=== PATIENT | female | born 1935 | race Caucasian/White ===

== ENCOUNTER 2017-07-19 16:50 | Inpatient (IN) | payer MEDICARE, OTHER ==
[2017-07-19 17:39] LABS: #Basophils 0.1 thou/uL (0.0-0.2); #Eosinphils 0.1 thou/uL (0.0-0.7); #Lymphocytes 1.7 thou/uL (1.20-3.40); #Monocytes 0.5 thou/uL (0.11-0.59); #Neutrophils 7.4 thou/uL (1.40-6.50); %Basophils 0.6 % (0.0-1.0); %Eosinophils 1.5 % (0.0-10.0); %Lymphocytes 17.8 % (21.0-51.0); %Monocytes 4.6 % (0.0-10.0); %Neutrophils 75.5 % (42.0-75.0); Mean Corpuscular HGB CONC 33.2 g/dL (32.0-36.0); Mean Corpuscular Hemoglobin 29.7 pg (27.0-31.0); Mean Corpuscular Volume 89.4 fl (81.0-99.0); Mean Platelet Volume 9.4 fL (7.4-10.4); Platelet Count 170 thou/uL (130-400); RBC Distribution Width 12.4 % (11.5-14.5); Red Blood Cell (RBC) Count 4.72 mill/uL (4.20-5.40); White Blood Cell (WBC) Count 9.8 thou/uL (4.8-10.8)
[2017-07-19 17:45] LABS: Prothrombin Time 12.9 SEC (12.0-14.7)
[2017-07-19 17:46] LABS: PTT 44.8 SEC (22.9-36.1)
[2017-07-19] MEDS ORDERED: Fentanyl 100 MCG/2 ML VIAL ONE (17:53)
[2017-07-19 18:00] LABS: ALT (SGPT) 8 U/L (8-55); AST (SGOT) 15 U/L (5-34); Albumin 3.8 g/dL (3.4-4.8); Alkaline Phosphatase 107 U/L (40-150); Anion Gap 14 mmol/L (10-20); BUN (Urea Nitrogen) 12 mg/dL (9.8-20.1); Bilirubin, Total 0.3 mg/dL (0.2-1.2); CK (CPK) 56 U/L (29-168); Calc. Creatinine Clearance 0 mL/min (70-130); Calcium 9.4 mg/dL (7.8-10.44); Carbon Dioxide 30 mmol/L (23-31); Chloride 100 mmol/L (98-107); Estimated GFR-MDRD 68; Globulin 2.7 g/dL (2.4-3.5); Glucose 113 mg/dL (83-110); Lipase 18 U/L (8-78); Potassium 4.2 mmol/L (3.5-5.1); Protein, Total 6.5 g/dL (6.0-8.3); Sodium 140 mmol/L (136-145)
--- NOTE | 2017-07-19 18:03 | RAD ---
EXAM: CHEST ONE VIEWS 07/19/17 COMPARISON: 02/01/17. HISTORY: Dizziness. FINDINGS: Enlarged cardiac silhouette. Pulmonary vessels and hilum are normal. Costophrenic angles are clear. N o consolidation or mass. No pneumothorax or osseous abnormalities. IMPRESSION: Cardiomegaly. No congestive heart failure. POS: [facility]
[2017-07-19 18:04] LABS: CKMB 2.7 ng/mL (0-6.6); Troponin I 0.022 ng/mL (< 0.028)
--- NOTE | 2017-07-19 21:15 | CT ---
EXAM: NONCONTRAST HEAD CT 07/19/17 HISTORY: Patient cannot walk. Altered mental status. Dizziness. COMPARISON: None. TECHNIQUE: Noncontrast head CT is performed from skull base to skull vertex. FINDINGS: No parenchymal hemorrhage. No extra-axial hematoma. No midline shift. Basilar cisterns are patent. Age appropriate atrophy. Malacic change in the medial right frontal lobe. Remainder of the cerebrum d emonstrates preservation of cortical novak-white matter differentiation. White matter hypodensities due to chronic small vessel ischemic change are noted. Calvarium is intact. Adequate aeration of the sinuses and mastoid air cells. IMPRESSION: 1. Chronic small vessel ischemic change of the white matter. 2. Malacic change in the medial right frontal lobe. 3. No acute intracranial process. POS: [facility]
[2017-07-19 23:56] VITALS: BMI 27.1
[2017-07-20] MEDS ORDERED: HYDROcodone/Acetaminophen 5/325 mg Tablet PO PRN (08:05)
[2017-07-20] MEDS ORDERED: Ondansetron ODT 4 MG TAB PO PRN (08:05)
[2017-07-20] MEDS ORDERED: Acetaminophen 325 MG TAB PO PRN (08:05)
--- NOTE | 2017-07-20 08:30 | HP ---
HISTORY OF PRESENT ILLNESS: This is an 82-year-old white female with a history of coronary artery d isease, peripheral vascular disease and severe aortic valve regurgitation who presents with dizziness . The patient has a long history of tobacco abuse, as well as coronary disease, status post stent an d peripheral vascular disease, status post stent to the right lower extremity. She continues to smok e half to 1 pack of cigarettes per day. She has been followed by Dr. Clay. She has been doing relatively well until yesterday at approximately 3:00 p.m., she became very dizzy and lightheaded. S he had to sit down. She had trouble with mobility so she sat down and then EMS was called and she wa s brought to the hospital. She was noted to have a relatively low blood pressure. Normally her bloo d pressure runs high. She did not complain of any chest pain, shortness of breath, nausea, vomiting, cold, congestion, fever. She does have a history of concentric left ventricular hypertrophy as well as severe aortic valve regurgitation, possibly eventually needing surgery. Initial CT scan of the ead was found to be negative for any acute disease. The patient is being admitted for further evalua tion. PAST MEDICAL HISTORY: Hypertension, concentric left ventricular hypertrophy, hyperlipidemia, tobacco abuse, hypothyroidism, moderate to severe aortic valve regurgitation with ejection fraction of 55-60 on 01/2017. PAST SURGICAL HISTORY: Include cardiac catheterization with stent placement x1 [address] Clay , bilateral cataract surgery, x1, spontaneous vaginal delivery x3, cardiac catheterization with stent to the right leg in 2015. FAMILY HISTORY: Father with liver cancer. Mother with heart disease. SOCIAL HISTORY: She does smoke half to 1 pack per day. She lives with her . 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 She has 2 sons, 2 daughters, 9 grandkids and many great grandkids. She does not drink alcohol. REVIEW OF SYSTEMS: As above. PHYSICAL EXAMINATION: VITAL SIGNS: Temperature 98.0, pulse 71, respirations 18, blood pressure 150/68, pulse ox 92. GENERAL: No acute distress at this time. She has not gotten out of bed yet to know if she is dizzy. Otherwise, at this time she is not dizzy. HEENT: Clear. NECK: Supple. HEART: Regular rate and rhythm with a 3/6 systolic ejection murmur. LUNGS: Clear. ABDOMEN: Soft, nontender. EXTREMITIES: No edema. NEUROLOGIC: Sensorimotor, cranial nerves all intact. DTRs symmetric. Motor equal bilaterally. LABORATORY: White count 9.8, H&H 14 and 42. INR 1.0. Glucose 113, potassium 4.2, creatinine 0.8, t roponin 1.022. BNP 339. CT brain, chronic small vessel changes of the white matter. No acute intracranial process. Chest x-ray: Cardiomegaly, no evidence of CHF. ASSESSMENT: 1. Near syncope. 2. Dizziness. 3. Moderate to severe aortic regurgitation. 4. Concentric left ventricular hypertrophy/coronary artery disease status post stent. 5. Tobacco abuse. 6. Hypertension. 7. Hypothyroid. 8. Peripheral vascular disease status post stent to the right lower extremity. PLAN: 1. The patient has had dizziness and lightheadedness, etiology unknown. Possibly may have had a TIA . However, the patient has a strong cardiac history and may be related to her aortic valve regurgita tion. She also may simply be dehydrated because she had minimal intake yesterday. She had no appeti te throughout the day yesterday. Will need further evaluation. 2. MRI of the brain. 3. Repeat echo. 4. Check TSH. 5. Consult Dr. Clay.
[2017-07-20] MEDS ORDERED: Carvedilol 6.25 MG TAB PO SCH (09:00)
[2017-07-20] MEDS ORDERED: Lisinopril 20 MG TAB PO SCH (09:00)
[2017-07-20] MEDS: Lisinopril 20 MG TAB PO SCH (09:17)
[2017-07-20] MEDS: Aspirin 325 mg Enteric Coated Tablet PO SCH (09:18)
[2017-07-20] MEDS: Famotidine 20 MG TAB PO SCH ×2 (09:18→20:18)
[2017-07-20] MEDS: Nicotine 14 MG PATCH TD SCH (09:18)
[2017-07-20] MEDS: Clopidogrel Bisulfate 75 MG TAB PO SCH (09:18)
[2017-07-20 09:30] LABS: CKMB 2.1 ng/mL (0-6.6); Troponin I 0.014 ng/mL (< 0.028)
[2017-07-20 09:36] LABS: Bilirubin Negative (Negative); Blood, Urine Negative (Negative); Clarity CLEAR (Clear); Glucose, Urine (Dipstick) Negative (Negative); Leukocyte Trace (Negative); Nitrite Negative (Negative); Protein, Urine (Dipstick) Negative (Neg-Trace); Specific Gravity, Urine 1.013 (1.002-1.036); Urobilinogen 0.2 mg/dL (0.2-1.0); pH, Urine 6.5 (5.0-9.0)
[2017-07-20 09:39] LABS: Bacteria/HPF None Seen HPF (None Seen); Hyaline Casts/LPF 0-3 HYALINE CAST LPF (0-3 Hyaline); Pathc Cast-AUWi Flag 0.27 (0-2.49); RBC/HPF 0-3 HPF (0-3); Squamous Epithelial 0-3 HPF (0-3); WBC/HPF 0-3 HPF (0-3)
--- NOTE | 2017-07-20 12:59 | MRI ---
MRI BRAIN WITHOUT CONTRAST: HISTORY: Dizziness. Difficulty walking. Altered mental status. CORRELATION: Correlation is made with the previous day's CT scan. FINDINGS: No restricted diffusion is seen. Multiple foci of T2 prolongation of the periventricular white matte r, consistent with chronic small vessel ischemic disease. There is cortical atrophy. The ventricular size is appropriate, and the basilar cisterns are patent. No evidence of transcortical infarct, hem orrhage, midline shift, or abnormal extraaxial fluid collections is seen. The visualized paranasal s inuses are well aerated. IMPRESSION: 1. No evidence of acute intracranial process. 2. Chronic small vessel ischemic disease. 3. Cortical atrophy. POS: [facility]
--- NOTE | 2017-07-20 17:27 | CON ---
DATE OF CONSULTATION: 07/20/2017 HISTORY: Laurence Huang is a pleasant 82-year-old white female patient of Dr. Clay. In 08/2008, she had exertional dyspnea. She underwent Cardiolite testing, which revealed an area of ischemia in the distal lateral wall. She underwent cardiac catheterization, which revealed 40-50% stenosis in a diagonal branch, normal circumflex, and 80% mid right coronary artery lesion and 10-20% stenosis in the mid and distal vessel. She underwent placement of a Promus 3.5 x 15 mm stent, which was post dilated with a 3.75 mm balloon. She also has had bilateral common iliac artery stenting also in 09/2008. She has continued to be followed in the office and does have aortic stenosis, aortic insufficiency. On last echocardiogram in 01/2017, she had ejection fraction of 55-60% with [id number] aortic regurgitation, mild concentric left ventricular hypertrophy, moderate aortic stenosis with a peak gradient of 49 mm, mean gradient of 30 mm, an aortic valve area 0.78 cm2, mild mitral regurgitation, mild tricuspid regurgitation, and evidence of diastolic dysfunction. She now presents complaining of lightheadedness and dizziness, which lasted total of 6 hours. With this, she had a feeling that the room was spinning. She almost lost her balance and fell, but was able to grab a hold of something. She did not have any syncope. She denied any chest discomfort or shortness of breath. She did have nausea with this. Even when she got to the emergency room, when she was supine in bed, she continued to have the same vertiginous- type symptoms. PAST MEDICAL HISTORY: Hypertension, aortic stenosis, aortic insufficiency, concentric left ventricular hypertrophy, hyperlipidemia, smoker, hypothyroidism. OPERATIONS: Right coronary artery stent placement, bilateral common iliac artery stenting, and section. MEDICATIONS: Aspirin 81 daily, carvedilol 12.5 daily, hydrochlorothiazide 25 mg daily, simvastatin unknown dose daily, lisinopril 20 mg b.i.d., isosorbide mononitrate 30 mg q.a.m. ALLERGIES: None. SOCIAL HISTORY: She continues to smoke one-pack per day. She does not drink alcohol. FAMILY HISTORY: Mother had cardiac disease. REVIEW OF SYSTEMS: Twelve-point review of systems otherwise unremarkable. PHYSICAL EXAMINATION: VITAL SIGNS: 137/62, pulse is 67. HEENT: PERRL. NECK: Supple. CHEST: Reveals distant breath sounds with some crackles at the bases. CARDIOVASCULAR EXAMINATION: S1 and S2 are normal, without any S3 or S4. There is a 2/6 systolic ejection murmur along the left sternal border. No diastolic murmurs heard. ABDOMEN: Normal bowel sounds, without tenderness, organomegaly, or masses. EXTREMITIES: Revealed no clubbing, cyanosis, or edema. NEUROLOGIC: Grossly intact. SKIN: Warm and dry. LABORATORY DATA: EKG revealed normal sinus rhythm with left atrial enlargement , left ventricular hypertrophy with repolarization abnormalities, similar to an EKG from the office dated 01/25/2017. CBC is unremarkable. INR 1.0. Sodium 140, potassium 4.2, chloride 100, carbon dioxide 30, BUN 12, creatinine 0.80, glucose 113. Cardiac enzymes were unremarkable. BNP 339.3. TSH mildly elevated at 6.308. IMPRESSION: 1. History most compatible with vertigo with feeling of spinning associated with nausea. She also had the same type symptoms when she was supine in bed in the emergency room. Certainly some of these symptoms may be related to hypotension or bradycardia. However, I feel that this represents vertigo. 2. Coronary artery disease, status post right coronary artery stent in 2008. 3. History of bilateral common iliac stenting in 2008. 4. Hypertension. 5. Hyperlipidemia. 6. Patient continues to smoke. 7. Aortic stenosis/aortic insufficiency. PLAN: At the present time, I do not feel that any further cardiac evaluation is warranted except for echocardiogram to reassess her aortic valve. I doubt that this episode is related to her aortic stenosis. She is taking a very high dose of carvedilol once a day and it would be more physiologic that this dose would be split into 6.25 b.i.d. MTDD
[2017-07-20] MEDS ORDERED: Simvastatin 40 MG TAB PO SCH (21:00)
[2017-07-21 05:02] LABS: #Basophils 0.1 thou/uL (0.0-0.2); #Eosinphils 0.2 thou/uL (0.0-0.7); #Lymphocytes 2.5 thou/uL (1.20-3.40); #Monocytes 0.4 thou/uL (0.11-0.59); #Neutrophils 3.5 thou/uL (1.40-6.50); %Basophils 0.9 % (0.0-1.0); %Eosinophils 2.8 % (0.0-10.0); %Monocytes 6.1 % (0.0-10.0); %Neutrophils 52.2 % (42.0-75.0); Hemoglobin 13.1 g/dL (12.0-16.0); Mean Corpuscular HGB CONC 33.3 g/dL (32.0-36.0); Mean Corpuscular Hemoglobin 29.5 pg (27.0-31.0); Mean Corpuscular Volume 88.8 fl (81.0-99.0); Mean Platelet Volume 9.5 fL (7.4-10.4); Platelet Count 140 thou/uL (130-400); RBC Distribution Width 12.4 % (11.5-14.5); Red Blood Cell (RBC) Count 4.43 mill/uL (4.20-5.40); White Blood Cell (WBC) Count 6.6 thou/uL (4.8-10.8)
[2017-07-21 05:23] LABS: Anion Gap 13 mmol/L (10-20); BUN (Urea Nitrogen) 12 mg/dL (9.8-20.1); Calc. Creatinine Clearance 60 mL/min (70-130); Calcium 8.9 mg/dL (7.8-10.44); Carbon Dioxide 27 mmol/L (23-31); Chloride 105 mmol/L (98-107); Estimated GFR-MDRD 74; Glucose 95 mg/dL (83-110); Potassium 4.1 mmol/L (3.5-5.1); Sodium 141 mmol/L (136-145)
[2017-07-21] MEDS ORDERED: Levothyroxine Sodium 88 MCG TAB PO SCH (06:00)
[2017-07-21 07:52] VITALS: BP 176/77; TEMP 98
[2017-07-21] MEDS: Lisinopril 20 MG TAB PO SCH (07:53)
[2017-07-21] MEDS: Clopidogrel Bisulfate 75 MG TAB PO SCH (07:53)
[2017-07-21] MEDS: Aspirin 325 mg Enteric Coated Tablet PO SCH (07:53)
[2017-07-21] MEDS: Famotidine 20 MG TAB PO SCH (07:53)
[2017-07-21] MEDS: Nicotine 14 MG PATCH TD SCH (07:54)
[2017-07-21] MEDS ORDERED: Carvedilol 6.25 MG TAB PO SCH (08:00)
--- NOTE | 2017-07-21 08:30 | DIS ---
DISCHARGE DIAGNOSES: 1. Vertigo. 2. Severe aortic regurgitation. 3. Concentric left ventricular hypertrophy. 4. Coronary artery disease, status post stent. 5. Peripheral vascular disease, status post stenting of the common iliac arteries. 6. Tobacco abuse. 7. Hypertension. 8. Hypothyroid. DISCHARGE MEDICATIONS: Aspirin 325 daily, carvedilol 6.25 p.o. b.i.d., Plavix 75 mg daily, isosorbid e 30 mg daily, levothyroxine 88 mcg daily, lisinopril 20 daily, simvastatin 40 daily. Echocardiogram pending. BRIEF HISTORY: This is an 82-year-old white female with coronary artery disease and a smoker who pre sented with dizziness. The patient has a long history of tobacco abuse and coronary artery disease w ho is status post stenting and the common iliac artery stenting. She continues to smoke half to 1 pa ck per day. She is followed by Dr. Clay. She became quite dizzy and was having difficulty ambu lating. Therefore, the family brought her to [facility]. She was noted to have a low blood pressure and was admitted for possible TIA versus CVA. HOSPITAL COURSE: MRI was found to be unremarkable. The patient's dizziness resolved spontaneously. Her exam and findings were consistent with vertigo. She is doing very well at this time. MRI was f ound to be unremarkable. The patient will be discharged at this time. An echo has been done, report is pending. She will be discharged and follow up with Dr. Clay. For many years I have tried t o convince her to quit smoking; however, she continues to smoke half to 1 pack per day. LABS: Electrolytes normal. Creatinine 0.75, BUN 12, TSH 6.30. Her Synthroid will be adjusted. Her BNP was 339. Urine clear. White count 6.6, H&H 13 and 39. Brain MRI and brain CT unremarkable. C hest x-ray showed cardiomegaly without CHF.
== END 2017-07-21 11:40 | disposition home or self-care (01) | DRG 149 ==
LOC: ERS 16:50 → ERHOLD 20:18 → 2SE 23:40
PROVIDERS: ADMIT Family Medicine; ATTEND Family Medicine
PROC: B030ZZZ Magnetic Resonance Imaging (MRI) of Brain (ICD-10-PCS; principal; 2017-07-20)
DX: R42 Dizziness and giddiness (principal); I73.9 Peripheral vascular disease, unspecified; I35.1 Nonrheumatic aortic (valve) insufficiency; E03.9 Hypothyroidism, unspecified; I10 Essential (primary) hypertension; I25.10 Atherosclerotic heart disease of native coronary artery without angina pectoris; E78.00 Pure hypercholesterolemia, unspecified; I51.7 Cardiomegaly; F17.210 Nicotine dependence, cigarettes, uncomplicated; Z95.5 Presence of coronary angioplasty implant and graft; Z82.49 Family history of ischemic heart disease and other diseases of the circulatory system; Z80.0 Family history of malignant neoplasm of digestive organs
CPT/HCPCS: 36415; 70450; 70551; 71045; 80048; 80053; 81003; 81015; 82550; 82553; 83690; 83880; 84443; 84484; 85025; 85610; 85730; 93005; 93306; G8978-GP-CJ; G8979-GP-CJ; G8980-GP-CJ; J3010

== ENCOUNTER 2017-09-19 19:54 | Inpatient (IN) | payer MEDICARE, OTHER ==
[2017-09-19 20:34] LABS: #Basophils 0.1 thou/uL (0.0-0.2); #Eosinphils 0.3 thou/uL (0.0-0.7); #Lymphocytes 2.5 thou/uL (1.20-3.40); #Monocytes 0.3 thou/uL (0.11-0.59); #Neutrophils 4.4 thou/uL (1.40-6.50); %Basophils 0.9 % (0.0-1.0); %Eosinophils 4.2 % (0.0-10.0); %Lymphocytes 32.7 % (21.0-51.0); %Monocytes 4.5 % (0.0-10.0); %Neutrophils 57.7 % (42.0-75.0); Mean Corpuscular HGB CONC 33.2 g/dL (32.0-36.0); Mean Corpuscular Hemoglobin 28.8 pg (27.0-31.0); Mean Corpuscular Volume 86.7 fl (81.0-99.0); Mean Platelet Volume 9.3 fL (7.4-10.4); Platelet Count 159 thou/uL (130-400); RBC Distribution Width 13.6 % (11.5-14.5); Red Blood Cell (RBC) Count 4.53 mill/uL (4.20-5.40); White Blood Cell (WBC) Count 7.6 thou/uL (4.8-10.8)
--- NOTE | 2017-09-19 20:41 | RAD ---
CHEST ONE VIEW: History: Chest pain. Comparison: 07-19-17 FINDINGS: Heart size is mildly enlarged. Chronic pleural and parenchymal changes in both lung bases. No pneumothorax. No acute osseous abnormality. IMPRESSION: No significant change. Mild cardiomegaly and chronic changes. POS: [facility]
[2017-09-19 20:53] LABS: ALT (SGPT) Less than 7 U/L (8-55); AST (SGOT) 17 U/L (5-34); Albumin 3.7 g/dL (3.4-4.8); Alkaline Phosphatase 102 U/L (40-150); Anion Gap 13 mmol/L (10-20); BUN (Urea Nitrogen) 10 mg/dL (9.8-20.1); Bilirubin, Total 0.3 mg/dL (0.2-1.2); CK (CPK) 63 U/L (29-168); Calc. Creatinine Clearance 0 mL/min (70-130); Calcium 8.9 mg/dL (7.8-10.44); Carbon Dioxide 29 mmol/L (23-31); Chloride 102 mmol/L (98-107); Estimated GFR-MDRD 56; Globulin 2.5 g/dL (2.4-3.5); Glucose 153 mg/dL (83-110); Potassium 4.2 mmol/L (3.5-5.1); Protein, Total 6.2 g/dL (6.0-8.3); Sodium 140 mmol/L (136-145)
[2017-09-19 20:55] LABS: CKMB 2.5 ng/mL (0-6.6); Troponin I 0.033 ng/mL (< 0.028)
[2017-09-20] MEDS ORDERED: Ondansetron ODT 4 MG TAB SL PRN
[2017-09-20] MEDS ORDERED: Acetaminophen 325 MG TAB PO PRN
[2017-09-20] MEDS ORDERED: Ondansetron HCl/PF 4 MG/2 ML Vial IVP PRN
[2017-09-20 00:30] LABS: Troponin I 0.027 ng/mL (< 0.028)
[2017-09-20] MEDS: Nitroglycerin 2% Ointment 1 INCH/1 GM Packet TOP SCH ×2 (01:08→15:50)
[2017-09-20 02:41] VITALS: BMI 25.0
[2017-09-20 02:57] LABS: Troponin I 0.039 ng/mL (< 0.028)
[2017-09-20] MEDS ORDERED: Lidocaine 1% (PF) 30 ML VIAL ONE (07:42)
[2017-09-20] MEDS ORDERED: Midazolam HCl 2 mg/2 ml Vial ONE (07:50)
[2017-09-20] MEDS ORDERED: Fentanyl 100 MCG/2 ML VIAL ONE (07:50)
[2017-09-20] MEDS ORDERED: Aspirin 325 MG TAB PO SCH (08:00)
[2017-09-20] MEDS ORDERED: hydrALAZINE 20 MG/ML VIAL ONE (08:10)
[2017-09-20] MEDS ORDERED: Heparin 10,000 UNITS/1 ML VIAL ONE (08:11)
[2017-09-20] MEDS ORDERED: Clopidogrel Bisulfate 300 MG TAB ONE (08:22)
--- NOTE | 2017-09-20 08:27 | CON ---
DATE OF CONSULTATION: 09/20/2017 REASON FOR CONSULTATION: Chest pain, abnormal stress study. PRIMARY CARE PROVIDER: Dr. Anup Moses. HISTORY OF PRESENT ILLNESS: Ms. Huang is a very pleasant 82-year-old woman, who was seen and evaluat ed for several years. Her main complaint in the past has been severe PVD. She has complete obstruct ion of the right SFA and left common iliac and common femoral artery and SFA. She has had coronary a ngiography performed in 2008 with stent placed in the right coronary artery. She had a 3.5 x 15 mm P romus stent, postoperative 3.75 x 12 mm Quantum air balloon catheter. She also had 40%-50%% stenosis in the mid LAD. She recently underwent coronary angiography and was found to have ischemia present along the anterior wall with LVEF 42%. She said she had a spell yesterday, which prompted her ER vis it. It was similar to her previous episode. It awoke her from sleep. [facility] PAST MEDICAL HISTORY: Continued tobacco abuse, hyperlipidemia, hypertension, severe PVD, family hist ory of CAD, . ALLERGIES: None. HOME MEDICATIONS: Include Crestor, Coreg, lisinopril, aspirin, hydrochlorothiazide, Zocor, Plavix, a nd isosorbide. REVIEW OF SYSTEMS: Ten-point review of systems is reviewed as above, otherwise negative. PHYSICAL EXAMINATION: VITAL SIGNS: Blood pressure 177/74, pulse 60, temperature 97.5. GENERAL: Patient is a pleasant woman, who is in no acute distress. The patient appears her stated a ge. NEUROLOGIC: The patient is alert and oriented times 3 with no focal neurologic deficits. HEENT: Sclerae without icterus. Mouth has moist mucous membranes with normal pallor. NECK: No JVD. Carotid upstroke brisk. No bruits bilaterally. LUNGS: Clear to auscultation with unlabored respirations. BACK: No scoliosis or kyphosis. CARDIAC: Regular rate and rhythm with normal S1 and S2. No S3 or S4 noted. No significant rubs, mu rmurs, thrills, or gallops noted throughout the precordium. PMI is not displaced. There is no nadia ternal heave. ABDOMEN: Soft, nontender, nondistended. No peritoneal signs present. No hepatosplenomegaly. No abnormal striae. EXTREMITIES: Nonpalpable popliteal ulcers bilaterally. SKIN: No gross abnormalities. PERTINENT LABORATORY DATA: Hemoglobin 13. Troponin 0.027. IMPRESSION: 1. Recurrent chest pain. 2. Abnormal stress study. 3. Severe peripheral vascular disease. 4. Tobacco abuse. RECOMMENDATIONS: Ms. Huang has had moderate stenosis of the LAD in the past. She has ischemia in th at distribution. At this point, I recommend coronary angiography, possible PCI. I discussed the pro cedure in full detail with Ms. Huang. Risks included but are not limited to following: , strok e, VA, need for emergency surgery, loss of limb, bleeding, and infection, as well as a reaction to th e dye causing kidney failure and needing long-term dialysis. I also discussed the risks of PCI to in clude all of the above including coronary dissection and perforation in addition to acute stent throm bosis and restenosis. All questions about the procedure were answered. Given the above, the patient agreed to proceed with coronary angiography and possible PCI. All questions answered. I also discu ssed drug-coated and nondrug-coated stent placement. There are no contraindication and proceed if ne eded. Further recommendations pending the above.
[2017-09-20] MEDS ORDERED: Ondansetron HCl/PF 4 MG/2 ML Vial ONE ×2 (08:41→08:59)
[2017-09-20] MEDS ORDERED: traMADol HCl 50 MG TAB PO PRN (08:43)
[2017-09-20] MEDS ORDERED: cloNIDine 0.1 MG TAB PO PRN (08:43)
[2017-09-20] MEDS ORDERED: Milk Of Magnesia 30 ML UDCUP PO PRN (08:43)
[2017-09-20] MEDS ORDERED: Acetaminophen/Codeine 30-300mg Tablet PO PRN (08:43)
[2017-09-20] MEDS ORDERED: Zolpidem Tartrate 5 MG TAB PO PRN (08:43)
[2017-09-20] MEDS ORDERED: Sodium Chloride 0.9% 1,000 ML IV SCH (08:45)
[2017-09-20] MEDS ORDERED: Morphine 2 MG/ML SYRINGE ONE (09:17)
[2017-09-20] MEDS: Carvedilol 3.125 MG TAB PO SCH ×2 (15:50→19:45)
[2017-09-20] MEDS: Clopidogrel Bisulfate 75 MG TAB PO SCH (15:51)
[2017-09-20] MEDS: Lisinopril 2.5 MG TAB PO SCH (16:00)
[2017-09-20] MEDS ORDERED: Iopamidol 370 76% 50 ML VIAL FS ONE (16:23)
[2017-09-20] MEDS ORDERED: Iopamidol 370 76% 100 ML VIAL ONE (16:23)
[2017-09-20] MEDS ORDERED: Amlodipine 5 MG TAB PO SCH (18:00)
[2017-09-20] MEDS: Atorvastatin Calcium 40 MG TAB PO SCH (19:45)
[2017-09-21 04:49] LABS: #Eosinphils 0.2 thou/uL (0.0-0.7); #Lymphocytes 1.5 thou/uL (1.20-3.40); #Monocytes 0.4 thou/uL (0.11-0.59); #Neutrophils 5.4 thou/uL (1.40-6.50); %Basophils 0.3 % (0.0-1.0); %Eosinophils 2.5 % (0.0-10.0); %Lymphocytes 19.6 % (21.0-51.0); %Monocytes 5.4 % (0.0-10.0); %Neutrophils 72.2 % (42.0-75.0); Hemoglobin 12.5 g/dL (12.0-16.0); Mean Corpuscular HGB CONC 32.5 g/dL (32.0-36.0); Mean Corpuscular Hemoglobin 28.5 pg (27.0-31.0); Mean Corpuscular Volume 87.5 fl (81.0-99.0); Mean Platelet Volume 9.5 fL (7.4-10.4); Platelet Count 154 thou/uL (130-400); RBC Distribution Width 13.8 % (11.5-14.5); Red Blood Cell (RBC) Count 4.38 mill/uL (4.20-5.40); White Blood Cell (WBC) Count 7.5 thou/uL (4.8-10.8)
[2017-09-21 05:03] LABS: ALT (SGPT) Less than 7 U/L (8-55); AST (SGOT) 22 U/L (5-34); Albumin 3.4 g/dL (3.4-4.8); Alkaline Phosphatase 89 U/L (40-150); Anion Gap 9 mmol/L (10-20); BUN (Urea Nitrogen) 9 mg/dL (9.8-20.1); Bilirubin, Total 0.6 mg/dL (0.2-1.2); Calc. Creatinine Clearance 58 mL/min (70-130); Calcium 8.7 mg/dL (7.8-10.44); Carbon Dioxide 31 mmol/L (23-31); Chloride 105 mmol/L (98-107); Estimated GFR-MDRD 74; Globulin 2.3 g/dL (2.4-3.5); Glucose 92 mg/dL (83-110); Potassium 4.5 mmol/L (3.5-5.1); Protein, Total 5.7 g/dL (6.0-8.3); Sodium 140 mmol/L (136-145)
[2017-09-21] MEDS ORDERED: Carvedilol 3.125 MG TAB PO SCH (06:46)
--- NOTE | 2017-09-21 08:07 | PRG ---
DATE OF SERVICE: 09/21/2017 SUBJECTIVE: This morning, called by nurses. Patient was complaining of some lightheadedness and diz ziness. She remains dizzy at this time. She was also noted to have elevated blood pressure. She mccollum d yet to receive her morning medications. OBJECTIVE: VITAL SIGNS: Temperature 98.1, pulse 76, respirations 16, and blood pressure 188/90. GENERAL: Patient complains of dizziness. She is comfortable in the bed. HEENT: Clear. HEART: Regular rate and rhythm with 2/6 systolic ejection murmur. LUNGS: Clear. ABDOMEN: Soft. EXTREMITIES: With no edema. LABORATORY DATA: White count 7.5, hemoglobin and hematocrit of 12 and 38. Electrolytes normal. Cre atinine 0.75 and BUN 9. Liver function is normal. ASSESSMENT: 1. Dizziness, possibly related to elevated blood pressure. The patient is yet to receive morning me dications. 2. Postop day #1, status post cardiac catheterization with stent x1. 3. Coronary artery disease and peripheral vascular disease. 4. Long history of tobacco abuse. 5. Hypertension. 6. Hyperlipidemia. 7. Hypothyroidism. PLAN: 1. Monitor blood pressure today. 2. Resume home medications which include aspirin 325 mg daily, Coreg 12.5 p.o. b.i.d., Plavix 75 mg daily, isosorbide 30 mg daily, levothyroxine 88 mcg daily, lisinopril 40 daily, and simvastatin 40 da paula.
[2017-09-21] MEDS ORDERED: Carvedilol 6.25 MG TAB PO SCH ×2 (08:15→09:00)
[2017-09-21] MEDS ORDERED: Lisinopril 20 MG TAB PO SCH (08:15)
[2017-09-21] MEDS: Clopidogrel Bisulfate 75 MG TAB PO SCH (08:24)
[2017-09-21] MEDS: Lisinopril 2.5 MG TAB PO SCH (08:28)
[2017-09-21] MEDS: Lisinopril 20 MG TAB PO SCH (08:29)
--- NOTE | 2017-09-21 08:47 | HP ---
DATE OF ADMISSION: 09/20/2017 at 07:30 This is an 82-year-old white female with a history of coronary artery disease and a long history of t obacco abuse, peripheral vascular disease, and severe aortic valve regurgitation. She was recently h ospitalized for a similar episode of near syncope, dizziness, and chest pain. This was in July of this year. However, she did well and her symptoms resolved. 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 She developed chest pain, nonradiating with nause a and vomiting. She then presented to the emergency room for further evaluation. She was noted to h ave a slightly elevated troponin. She also had been seen by Dr. Clay and it was decided that e proceed with cardiac catheterization due to her long history of coronary artery disease, peripheral vascular disease, and tobacco history. PAST MEDICAL HISTORY: Hypertension, concentric left ventricular hypertrophy, hyperlipidemia, tobacco abuse, hypothyroidism, severe aortic valve regurgitation. PAST SURGICAL HISTORY: Include cardiac catheterization with stent x1, 2009; bilateral cataract surge ry; x1; spontaneous vaginal delivery x3; cardiac catheterization with stent to the right le g in 2014. FAMILY HISTORY: Father with liver cancer. Mother with heart disease. SOCIAL HISTORY: She smokes 1 pack per day. She lives with her . She has 2 sons two daughter s, 9 kids, and many grandkids. She does not drink alcohol. REVIEW OF SYSTEMS: As above. PHYSICAL EXAMINATION: VITAL SIGNS: Temperature 97.5, blood pressure 137/74, pulse 60. GENERAL: No acute distress. The patient was seen postop catheterization this morning. HEART: Regular rate and rhythm with 2/6 systolic ejection murmur. LUNGS: Clear. ABDOMEN: Soft, nontender. EXTREMITIES: With no edema. LABORATORY: Creatinine is 0.95, BUN 10, potassium 4.2. Troponin 0.033. White count 7.6, H and H of 13 and 39. ASSESSMENT: 1. Chest pain, rule out myocardial infarction. 2. Coronary artery disease, peripheral vascular disease, status post cardiac stent. 3. Hypertension. 4. Hyperlipidemia. 5. Severe aortic valve regurgitation. 6. Hypothyroidism. 7. Tobacco history. PLAN: 1. Dr. Caly completed a cardiac catheterization this morning. One stent was placed in the dist al right coronary artery. 2. We will observe today, possibly discharge this afternoon. 3. Resume home medications.
[2017-09-21] MEDS ORDERED: Ondansetron HCl/PF 4 MG/2 ML Vial SLOW IVP PRN (12:32)
[2017-09-21] MEDS ORDERED: DOBUTamine 500 mg/250 ml 500 MG in Premix Bag 1 BAG IVPB SCH (12:45)
--- NOTE | 2017-09-21 19:00 | PRG ---
DATE OF SERVICE: 09/21/2017 SUBJECTIVE: Ms. Huang today had hypertension this morning. She was placed on her home medications. She did develop ventricular standstill with an 8 second pause. She did develop dizziness. She has not had syncope or presyncope in the past. She was then placed on low dose Dobutrex at 5 mcg. She w as transferred to telemetry monitoring. OBJECTIVE: VITAL SIGNS: Blood pressure 144/65, pulse 70, temperature 98.6. LUNGS: Clear to auscultation. CARDIAC: Heart, regular rate and rhythm. ABDOMEN: Soft, nontender, nondistended. EXTREMITIES: No edema. IMPRESSION: Ventricular standstill. RECOMMENDATIONS: I do not feel Ms. Huang symptoms are related to increase in beta alessio. This johnny uld not cause ventricular standstill. She has likely had sick sinus syndrome. I have asked EP to co nsult and they agree. At this point, we would recommend transferring to [facility] for closer observation. She is currently stable and again has not had syncope or presyncope in the past. Pacemaker is plan enrico for tomorrow morning. We will place external pads overnight.
--- NOTE | 2017-09-21 19:45 | CON ---
DATE OF CONSULTATION: 09/21/2017 This is an electrophysiology consultation dictated for Dr. Dustin Serrano. REFERRING PHYSICIAN: David Clay MD REASON FOR CONSULTATION: Arrhythmia and ventricular standstill with pause. HISTORY OF PRESENT ILLNESS: Ms. Huang is a pleasant 82-year-old woman, who has been a patient of Dr. Clay for some years. She has a fairly extensive history of severe PVD, as well as coronary artery disease. She has had RCA stenting in 2008 along with 40%-50% stenosis found in the mid LAD. Most recent LVEF is documented at 42%. The patient reportedly had an episode of dizziness on 09/19/2017, which prompted her presentation to the emergency room. She has had similar episodes in the past, but it was in association with a chest pain that have awoken her from her sleep. She reports she has never had an episode with passing out or any known arrhythmias in the past. She denies any heart racing or palpitations. She has not had any stroke or stroke-like symptoms. She does have some lightheadedness and dizziness today. She has recently undergone heart catheterization and received 1 stent to the distal RCA on 2017. It appears there was some possible discrepancy with her beta alessio dose. By records, this admission, the patient was documented as having Coreg 12.5 mg p.o. b.i.d., but in reality she takes 6.25 mg p.o. b.i.d. at home. She was given 12.5 mg here and had her ventricular standstill with that dose on board. She has not had previous intolerance to beta blockers. PAST MEDICAL HISTORY: 1. Peripheral vascular disease with complete obstruction of the right SFA and left common iliac and common femoral artery as well as SFA. 2. Coronary artery disease with stenting in the RCA and recent PCI with stent placement, unknown location. 3. Hyperlipidemia. 4. Hypertension. PAST SURGICAL HISTORY: . FAMILY HISTORY: Positive for coronary artery disease. SOCIAL HISTORY: Positive for tobacco habituation. Negative for alcohol abuse and illicit drug use. ALLERGIES: None. HOME MEDICATIONS: Include Crestor, Coreg, lisinopril, aspirin, hydrochlorothiazide, Zocor, Plavix, and isosorbide. REVIEW OF SYSTEMS: A 10-point review of systems is conducted and is negative except that listed above in the HPI. PHYSICAL EXAMINATION: VITAL SIGNS: 98.6 degrees Fahrenheit, pulse is 70, respirations 16, 92% on 2 liters via nasal cannula, blood pressure 144/65. GENERAL: This is a very pleasant woman in no acute distress. She appears her stated age and she is alert and oriented. NEUROLOGIC: Her speech is clear and her affect is appropriate. Her neurologic exam is grossly intact and without deficit, nonfocal. HEENT: Her sclerae are anicteric and EOMs are intact. Her oral mucosa is moist and pink with adequate dentition. NECK: Supple without jugular venous distention and carotids are without bruit bilaterally. CHEST: Her lungs are clear to auscultation bilaterally. Respirations are even and unlabored, and without crackles, wheezes, or rhonchi. HEART: Her heart rate is regularly regular with a normal S1 and S2. PMI is nondisplaced. ABDOMEN: Benign with positive bowel sounds noted throughout. EXTREMITIES: Have noticeably decreased arterial flow, nonpalpable popliteal pulses with pulses dopplerable bilaterally to lower extremities. DATABASE: Hematology on 09/21/2017: WBC 7.5, hemoglobin 12.5, hematocrit 38.3 , platelet count of 154. Chemistry on 09/21/2017: Sodium 140, potassium 4.5, chloride 105, carbon dioxide 31, BUN of 9, creatinine 0.75. AST is 22, ALT is less than 7, alkaline phosphatase is 89. Serial troponins were conducted and has peaked at 0.039. Chest x-ray on 09/19/2017: Mild cardiomegaly and chronic pleural and parenchymal changes in both lung bases. No pneumothorax. No acute abnormality. Telemetry and EKG review: All tracings and EKGs were personally reviewed. The patient is currently in sinus bradycardia at a rate in the mid to high 50s. There are some ST depression along the inferior leads. On 2017 at 11:49, the patient had an 8.2 second ventricular standstill. There is no preceding progressive bradycardia and P-waves discernibly continued regularly. The patient has had 2 or 3 additional episodes around the same time with the longest episode being 8.2 seconds. IMPRESSION: 1. Paroxysmal complete AV block with associated nausea and altered level of conscious. 2. Coronary artery disease with prior myocardial infarction, currently hospitalized with a [id number] myocardial infarction and status post stent to the distal RCA x1. 3. Necessary beta alessio therapy in the setting of coronary artery disease. Possible beta alessio intolerance. PLAN: At this point, it is likely the patient would benefit from a permanent pacemaker implantation. It is possible that her block occurred in the setting of beta alessio intolerance, although the dose of Coreg she received is only slightly higher than her regular home dose. For that reason, the safest way to proceed with a permanent pacemaker implantation. Thank you for allowing us to participate in the care of this patient. Dictated by ROCÍO Fong
[2017-09-21] MEDS: Atorvastatin Calcium 40 MG TAB PO SCH (21:52)
[2017-09-22] MEDS ORDERED: Gentamicin 80 MG/2 ML VIAL ONE (06:42)
[2017-09-22] MEDS ORDERED: CEFAZOLIN 1 GM VIAL ONE (06:42)
[2017-09-22] MEDS ORDERED: CEFAZOLIN/Water 2 GM/20 ML SYRINGE ONE (06:43)
[2017-09-22] MEDS ORDERED: Midazolam HCl 2 mg/2 ml Vial ONE (07:27)
[2017-09-22] MEDS ORDERED: Carvedilol 6.25 MG TAB PO SCH ×3 (08:30→17:00)
[2017-09-22] MEDS: Lisinopril 20 MG TAB PO SCH (09:17)
[2017-09-22] MEDS: Clopidogrel Bisulfate 75 MG TAB PO SCH (09:18)
--- NOTE | 2017-09-22 10:24 | RAD ---
CHEST ONE VIEW: Comparison: 09-19-17 History: Status post cardiac device placement. FINDINGS: Portable upright chest demonstrates a left sided transvenous pacemaker with leads positioned in the r ight atrium and right ventricle. There are parenchymal changes in the right lung base. There is no pn eumothorax or osseous abnormalities. IMPRESSION: 1. Left side transvenous pacemaker as above. 2. No pneumothorax. 3. Parenchymal change in the right lung base. Continued surveillance. POS: [facility]
--- NOTE | 2017-09-22 10:29 | PRG ---
DATE OF SERVICE: 09/22/2017 SUBJECTIVE: I am seeing Ms. Huang in followup. She underwent a dual-chamber pacemaker implantation by Dr. Haley this morning. She seems to be doing well on the day of her procedure. No chest pains. No further dizziness is noted since the implant. OBJECTIVE: VITAL SIGNS: Blood pressure is 166/53, heart rate is 70, respirations 16, temperature 97.8 degrees Fahrenheit. GENERAL: This is an alert and oriented woman in no apparent distress. NECK: Supple. Jugular veins not distended. CHEST: Coarse without crackles. CARDIOVASCULAR: Heart sounds are regular to rate and rhythm. No murmur or gallop. ABDOMEN: Benign. Bowel sounds positive. EXTREMITIES: Without edema, clubbing or cyanosis. DATABASE: The chest x-ray reviewed reveals adequate CT dual chamber pacemaker without evidence of pneumothorax. LAB DATA: White blood cell count 7.5, hemoglobin 12.5, platelet count is 154, 000 on the 7th, electrolytes normal on the 7th as well. ASSESSMENT AND PLAN: Ms. Huang is an 82-year-old woman with history of recent stent placement and peripheral vascular disease. She has marked bradycardia on moderate doses of beta alessio associated with nausea. She also had a recent RCA territory stent. She was symptomatic with these events. We discussed there is a benefit from pacemaker implantation in her set up. Likely, she will need beta blockers long-term, hence history of myocardial infarctions. She underwent a pacemaker without events today. Continue monitoring, continue beta blockers as well. I am happy to see her back as an outpatient if felt necessary. RACH
--- NOTE | 2017-09-22 13:33 | RAD ---
PORTABLE CHEST: History: Dyspnea. ICU follow up. Post cardiac device placement. FINDINGS/IMPRESSION: Lungs appear clear. Heart is mildly enlarged with mild vascular engorgement which appears stable. Tin y effusions and mild bibasilar atelectasis cannot be excluded. These findings are slightly less prono unced than on the prior study from 8:57 a.m. this morning. Deal-lead pacemaker device is unchanged. N o acute interval change. POS: [facility]
--- NOTE | 2017-09-22 17:33 | EKG ---
Test Reason : POST STENT - RCA Blood Pressure : / mmHG Vent. Rate : 084 BPM Atrial Rate : 084 BPM P-R Int : 148 ms QRS Dur : 088 ms QT Int : 404 ms P-R-T Axes : 060 -01 180 degrees QTc Int : 477 ms Normal sinus rhythm Possible Left atrial enlargement Left ventricular hypertrophy with repolarization abnormality Abnormal ECG When compared with ECG of 19-SEP-2017 19:59, (Unconfirmed) ST now depressed in Anterior leads Confirmed by DR. Lionel MENDIETA ([id number]) on 09/22/2017 5:32:58 PM Referred By: DRAGAN Confirmed By:DR. Lionel MENDIETA
--- NOTE | 2017-09-22 17:39 | EKG ---
Test Reason : Blood Pressure : / mmHG Vent. Rate : 074 BPM Atrial Rate : 074 BPM P-R Int : 154 ms QRS Dur : 076 ms QT Int : 414 ms P-R-T Axes : 071 002 177 degrees QTc Int : 459 ms Normal sinus rhythm Left ventricular hypertrophy with repolarization abnormality Abnormal ECG When compared with ECG of 20-SEP-2017 09:32, (Unconfirmed) No significant change was found Confirmed by DR. Lionel MENDIETA ([id number]) on 09/22/2017 5:39:20 PM Referred By: DRAGAN Confirmed By:DR. Lionel MENDIETA
--- NOTE | 2017-09-22 18:20 | PRG ---
DATE OF SERVICE: 09/22/2017 SUBJECTIVE: Ms. Huang had a setback today. She had a syncopal episode while going to the bathroom. She quickly was arousable. She was placed in bed. The blood pressure at that time was 150 with a p ulse of 60. During my visit, she is somnolent. No current complaints. OBJECTIVE: VITAL SIGNS: Blood pressure 170/61, pulse 66 and temperature is 94. LUNGS: Clear to auscultation. HEART: Regular rate and rhythm. ABDOMEN: Soft, nontender and nondistended. EXTREMITIES: No edema. IMPRESSION: Recent syncope. RECOMMENDATIONS: I did not feel this is due to her cardiac condition. Her LVEF has been normal. Sh ciara was revascularized 2 days ago. She underwent pacemaker placement yesterday. May consider a neurol ogic cause. We would recommend echo with Doppler to assess for effusion, although not typical. We w ill also recommend orthostatics. Continue to observe closely.
--- NOTE | 2017-09-22 18:29 | PRG ---
DATE OF SERVICE: 09/22/2017 SUBJECTIVE: The patient is postop day #0, status post dual-chamber pacemaker implantation by Dr. Tayler wakefield this morning. The patient is doing well at this time. She sits up in a chair. She is feeling muc h better at this time. Her nausea and dizziness have resolved. OBJECTIVE VITAL SIGNS: Temperature 98.4, pulse 66, respirations 16, pulse ox 99, blood pressure 170/61. HEART: Regular rate and rhythm. LUNGS: Clear. ABDOMEN: Soft. EXTREMITIES: No edema. ASSESSMENT: 1. Postop day #0, status post dual chamber pacemaker implantation. 2. Postop day #2, status post cardiac catheterization with stent x1. 3. Coronary artery disease, peripheral vascular disease. 4. Long history of tobacco abuse. 5. Hypertension. 6. Hyperlipidemia. 7. Hypothyroidism. PLAN: 1. Continue to monitor patient tonight. If she does well, probably will be discharged in the [facility]. 2. Continue home medications, which include aspirin 325 mg q. day, Coreg 12.5 b.i.d., Plavix 75 mg q . day, isosorbide 30 q. day, levothyroxine 88 q. day, lisinopril 20 q. day, and simvastatin 40 q. day .
--- NOTE | 2017-09-22 18:47 | CON ---
DATE OF CONSULTATION: 09/22/2017 CONSULTING PHYSICIAN: Anup Moses M.D. IMPRESSION: Probable peripheral vertigo. PLAN: The patient to be referred to the [facility] for further evaluation and vestibular t esting. HISTORY OF PRESENT ILLNESS: Ms. Huang is an 82-year-old white female with past history of coronary a rtery disease, peripheral vascular disease, aortic stenosis, came in with complaints of dizziness. S he had a spell at home that she described as a feeling of lightheadedness associated with some nausea and diaphoresis. She was brought in for further evaluation. She had a CT scan of the brain done, w hich was unremarkable. The episode only lasted a matter of a few minutes. She had an episode today where she was sitting on the toilet and suddenly had a sensation of dizziness. It was not associated with nausea, vomiting, headache, slurred speech, lateralized weakness or numbness. She did have a s light amount of blurred vision. The episode lasted around 10 minutes by her estimation. She denies any past history of vertigo attacks associated with movement. There is no past history of stroke-lik e symptoms. PAST MEDICAL HISTORY: Hypertension, left ventricular hypertrophy, hyperlipidemia, tobacco use, hypot hyroidism, ejection fraction of 55% to 60%. PAST SURGICAL HISTORY: Cardiac catheterization. FAMILY HISTORY: Noncontributory. SOCIAL HISTORY: She was at home with her . She does not drink. REVIEW OF SYSTEMS: Otherwise, negative. PHYSICAL EXAMINATION: GENERAL: This is a healthy appearing elderly lady, sitting at the bedside without distress. VITAL SIGNS: Have been stable. She is afebrile. HEENT: Pupils are equal and minimally reactive. Conjunctivae clear. Oropharynx clear. NECK: Supple. NEUROLOGIC: She is alert and appropriate. Her speech is fluent and clear. Cranial nerves II-XII ar e intact. No nystagmus was noted. No nystagmus could be elicited by head shake. Motor exam showed symmetric strength. There was no fix or drift. There is no tremor or dysmetria. Sensation was inta ct to light touch. She can stand independently. IMAGING: EKG shows a sinus rhythm. SUMMARY: This is an elderly lady with some brief episodes of vertigo, suspect this is going to be ve stibular in origin. She is already on aspirin and Plavix for stroke prevention. Nothing further can be done in the hospital, I would be happy to follow up with her as an outpatient.
[2017-09-22] MEDS: Atorvastatin Calcium 40 MG TAB PO SCH (20:40)
[2017-09-23 04:12] VITALS: TEMP 98.4
[2017-09-23] MEDS: Lisinopril 20 MG TAB PO SCH (08:51)
[2017-09-23] MEDS: Clopidogrel Bisulfate 75 MG TAB PO SCH (09:24)
--- NOTE | 2017-09-23 13:09 | PRG ---
DATE OF SERVICE: 09/23/2017 SUBJECTIVE: Ms. Huang is doing better today. She has not any syncope or presyncope. She did underg o evaluation by Dr. Nicholas Maier. He feels her symptoms are consistent with peripheral vertigo. PHYSICAL EXAMINATION: VITAL SIGNS: Blood pressure 182/75, pulse 69, and temperature 98.4. LUNGS: Clear to auscultation. CARDIAC: Regular rate and rhythm. ABDOMEN: Soft, nontender, nondistended. EXTREMITIES: No edema. IMPRESSION: 1. Recent syncope. 2. Sick sinus syndrome. 3. Angina. RECOMMENDATIONS: Continue aspirin in addition to Plavix. She is currently on 20 mg of lisinopril. We will reinstitute carvedilol at a lower dose for better blood pressure control. May consider addin g Norvasc if blood pressure remains elevated. If stable, would be okay from my standpoint to dischar ge home this afternoon.
[2017-09-23 15:01] VITALS: BP 133/63
--- NOTE | 2017-09-23 15:50 | DIS ---
DATE OF ADMISSION: 09/21/2017 DATE OF DISCHARGE: 09/23/2017 DISCHARGE DIAGNOSES: 1. Postoperative day #1, status post dual chamber pacemaker implantation. 2. Postoperative day #3, status post cardiac catheterization with stent x1. 3. Peripheral vertigo. 4. Coronary artery disease, peripheral vascular disease. 5. Long history of tobacco use, continues to smoke. 6. Hypertension. 7. Hyperlipidemia. 8. Hypothyroidism. DISCHARGE MEDICATIONS: Aspirin 325 daily, Coreg 12.5 p.o. b.i.d., Plavix 75 p.o. daily, isosorbide 3 0 daily, levothyroxine 88 mcg daily, lisinopril 20 daily, and simvastatin 40 daily. FOLLOWUP: 1. Follow up Dr. Clay. 2. Follow up Dr. Anup Moses in 1 week. BRIEF HISTORY: This is an 82-year-old white female with history of coronary artery disease, who cont inues to smoke. Recently hospitalized for syncope in July of this year. She did well following t his episode. She awoke on the day of admission with chest pain, nonradiating with one episode of noreen sea and vomiting. She presented to the emergency room for evaluation. She was noted to have a sligh tly elevated troponin. HOSPITAL COURSE: The patient was seen by Dr. Clay, who performed a cardiac catheterization and stent x1 was placed in the right coronary artery. She had an episode of ventricular standstill. Thi s was consistent with sick sinus syndrome. EP was consulted and recommended a pacemaker placement. He recommended long-term beta alessio usage. Over the past 24 hours, the patient has done well. She is ambulating. She is now ready for discharge. Dr. Maier was consulted due to a near syncopal ep isode and he felt the patient was simply having peripheral vertigo. The patient will be discharged a nd follow up in the next week. EKG did reveal left ventricular hypertrophy.
[2017-09-23] MEDS ORDERED: Carvedilol 3.125 MG TAB PO SCH (17:00)
--- NOTE | 2017-09-24 19:03 | EKG ---
Test Reason : CP Blood Pressure : / mmHG Vent. Rate : 083 BPM Atrial Rate : 083 BPM P-R Int : 144 ms QRS Dur : 072 ms QT Int : 388 ms P-R-T Axes : 054 -07 183 degrees QTc Int : 455 ms Normal sinus rhythm Possible Left atrial enlargement Left ventricular hypertrophy with repolarization abnormality Abnormal ECG Confirmed by TIANNA MARTÍNEZ, YARITZA ([id number]), deputy editor in chief HAILEE ROSADO ([id number]) on 09/24/2017 7:02:23 PM Referred By: TIANNA Confirmed By:YARITZA WYNN MD
== END 2017-09-23 15:40 | disposition home or self-care (01) | DRG 242 ==
LOC: ERS 19:54 → 2SW 22:25 → OBSVTOIN 09-21 14:20 → 2NO 09-21 14:24 → IMCU/EMU 09-21 19:05 → 2SE 09-22 21:20
PROVIDERS: ADMIT Family Medicine; ATTEND Family Medicine
PROC: 027034Z Dilation of Coronary Artery, One Artery with Drug-eluting Intraluminal Device, Percutaneous Approach (ICD-10-PCS; 2017-09-20)
PROC: 4A023N7 Measurement of Cardiac Sampling and Pressure, Left Heart, Percutaneous Approach (ICD-10-PCS; 2017-09-20)
PROC: B2111ZZ Fluoroscopy of Multiple Coronary Arteries using Low Osmolar Contrast (ICD-10-PCS; 2017-09-20)
PROC: B4181ZZ Fluoroscopy of Bilateral Renal Arteries using Low Osmolar Contrast (ICD-10-PCS; 2017-09-20)
PROC: 0JH606Z Insertion of Pacemaker, Dual Chamber into Chest Subcutaneous Tissue and Fascia, Open Approach (ICD-10-PCS; principal; 2017-09-22)
PROC: 02H63JZ Insertion of Pacemaker Lead into Right Atrium, Percutaneous Approach (ICD-10-PCS; 2017-09-22)
PROC: 02HK3JZ Insertion of Pacemaker Lead into Right Ventricle, Percutaneous Approach (ICD-10-PCS; 2017-09-22)
DX: I25.119 Atherosclerotic heart disease of native coronary artery with unspecified angina pectoris (principal); I21.4 Non-ST elevation (NSTEMI) myocardial infarction; I46.2 Cardiac arrest due to underlying cardiac condition; I44.2 Atrioventricular block, complete; H81.399 Other peripheral vertigo, unspecified ear; I49.5 Sick sinus syndrome; I73.9 Peripheral vascular disease, unspecified; E03.9 Hypothyroidism, unspecified; E78.5 Hyperlipidemia, unspecified; F17.210 Nicotine dependence, cigarettes, uncomplicated; I10 Essential (primary) hypertension; I51.7 Cardiomegaly; Z95.5 Presence of coronary angioplasty implant and graft; I25.2 Old myocardial infarction; I35.1 Nonrheumatic aortic (valve) insufficiency
CPT/HCPCS: 33208; 36252; 36415; 71045; 76942; 80053; 82553; 84484; 85025; 85347; 92928; 93005; 93010; 93306; 93458; 93798; 94760; 99152; 99153; 99406; A4216; C1769; C1785; C1874; C1887; C1898; C9600; J0360; J0690; J1250; J1580; J1644; J2001; J2250; J2270; J2405; J3010

== ENCOUNTER 2018-05-12 11:39 | Inpatient (IN) | payer MEDICARE, OTHER ==
[~2018-05-12 11:39] MED LIST: ISOVUE-370 76%-LOCM 1 ML ONE
[2018-05-12 12:44] LABS: #Basophils 0.1 thou/uL (0.0-0.2); #Eosinphils 0.1 thou/uL (0.0-0.7); #Lymphocytes 2.1 thou/uL (1.20-3.40); #Monocytes 0.5 thou/uL (0.11-0.59); #Neutrophils 6.1 thou/uL (1.40-6.50); %Basophils 0.7 % (0.0-1.0); %Eosinophils 0.9 % (0.0-10.0); %Monocytes 5.4 % (0.0-10.0); %Neutrophils 68.9 % (42.0-75.0); Hemoglobin 14.8 g/dL (12.0-16.0); Mean Corpuscular HGB CONC 32.6 g/dL (32.0-36.0); Mean Corpuscular Volume 85.8 fL (78.0-98.0); Mean Platelet Volume 9.3 fL (7.4-10.4); Platelet Count 158 thou/uL (130-400); RBC Distribution Width 13.4 % (11.5-14.5); White Blood Cell (WBC) Count 8.8 thou/uL (4.8-10.8)
[2018-05-12 12:48] LABS: Prothrombin Time 13.3 SEC (12.0-14.7)
[2018-05-12 12:49] LABS: PTT 54.3 SEC (22.9-36.1)
[2018-05-12 13:11] LABS: ALT (SGPT) Less than 7 U/L (8-55); AST (SGOT) 16 U/L (5-34); Albumin 4.1 g/dL (3.4-4.8); Alkaline Phosphatase 102 U/L (40-150); Anion Gap 14 mmol/L (10-20); BUN (Urea Nitrogen) 11 mg/dL (9.8-20.1); Bilirubin, Total 0.4 mg/dL (0.2-1.2); CK (CPK) 70 U/L (29-168); Calc. Creatinine Clearance 0 mL/min (70-130); Calcium 9.4 mg/dL (7.8-10.44); Carbon Dioxide 29 mmol/L (23-31); Chloride 104 mmol/L (98-107); Estimated GFR-MDRD 60; Globulin 2.7 g/dL (2.4-3.5); Glucose 128 mg/dL (83-110); Protein, Total 6.8 g/dL (6.0-8.3); Sodium 143 mmol/L (136-145)
[2018-05-12 13:15] LABS: CKMB 3.5 ng/mL (0-6.6); Troponin I Less than 0.010 ng/mL (< 0.028)
--- NOTE | 2018-05-12 13:39 | CT ---
NONCONTRAST CT HEAD: Date: 05-12-18 History: Altered mental status. Progressively worsening stress like symptoms with left sided weakness and left arm numbness that started 2-3 days ago. Comparison: 07-19-17, MRI brain 07-20-17. FINDINGS: There is a stable area of encephalomalacia seen within the right anterior superior frontal lobe likel y related to an area of prior infarction. Chronic small vessel ischemic changes and cerebral volume l oss are again seen, not significantly progressed from prior exam. There is no evidence of an acute co rtical infarction, hemorrhage, mass effect, or midline shift. The ventricular system is normal in siz e, shape, and position. Low density areas are again seen in the lateral aspect of the right putamen l ikely related to remote lacunar infarction. Visualized paranasal sinuses and mastoid air cells are clear. IMPRESSION: 1. No acute intracranial abnormality is demonstrated. 2. Chronic small vessel ischemic changes and cerebral volume loss which has not progressed from prior exam. 3. Stable area of encephalomalacia right anterior frontal lobe adjacent to the midline. 4. Remote lacunar infarction right basal ganglia. 5. Above findings discussed with Dr. Stevenson in the Emergency Department on 05-12-18 at 1209 hours. POS: [facility]
--- NOTE | 2018-05-12 13:40 | RAD ---
PORTABLE AP CHEST: Date: 05/12/18 HISTORY: Altered mental status and left-sided weakness for 3 days. COMPARISON: 09/22/17. FINDINGS: Dual lead left subclavian cardiac pacemaking device remains in place. Cardiac silhouette is magnified by projection but does appear mildly enlarged. The pulmonary vasculature is within normal limits. Th ere are linear densities overlying the lateral right upper lung zone of uncertain etiology. This coul d be related to atelectasis or secondary to overlying artifact. Findings were not present on prior ex am. Lungs are otherwise clear. Vascular calcifications are seen in the thoracic aorta. No other inter sera change. IMPRESSION: 1. Mid cardiomegaly without overt CHF. 2. No acute cardiopulmonary process. 3. Tram track appearing linear densities overlying the lateral right mid to upper lung zone of uncer tain etiology. This does not have the typical appearance of atelectasis. This could be artifactual. F ollow-up chest x-ray is suggested. POS: [facility]
[2018-05-12] MEDS ORDERED: Ondansetron PF 4 MG/2 ML Vial IVP PRN (17:20)
[2018-05-12] MEDS ORDERED: Ondansetron ODT 4 MG TAB SL PRN (17:20)
[2018-05-12 17:58] VITALS: BMI 25.8
[2018-05-12] MEDS ORDERED: cloNIDine 0.1 MG TAB PO PRN (18:01)
[2018-05-12] MEDS ORDERED: Nitroglycerin 0.4 MG TAB (25 Tab Bottle) SL PRN (18:01)
--- NOTE | 2018-05-12 20:23 | CT ---
CT HEAD WITHOUT CONTRAST: CT ANGIOGRAM HEAD WITH CONTRAST: CT ANGIOGRAM NECK WITH CONTRAST: HISTORY: TIA. COMPARISON: None. FINDINGS NONCONTRAST BRAIN: No acute hemorrhage or infarct. Moderate microvascular ischemic changes. Findin gs are completely unchanged from the exam of the same day. Mild atrophy. The calvarium is intact. No acute hemorrhage or infarct. IMPRESSION: Unchanged examination. CT ANGIOGRAM NECK WITH CONTRAST/CT ANGIOGRAM HEAD WITH CONTRAST: CT angiogram of the head and neck p erformed after the intravenous administration of contrast, with 3D rendering provided. The lung apices are clear. No cervical spine compression fracture. The left vertebral artery is dominant. Both vertebral arteries are parent. Both common carotid arteries are patent. Using NASCET criteria, no hemodynamically significant steno sis of the internal carotid arteries. The basilar artery is patent. The knik of [place]z is patent. No aneurysm formation or thrombus. T he right A1 segment if hypoplastic. The posterior cerebral arteries are patent. IMPRESSION: 1. No hemodynamically significant stenosis of the internal carotid arteries using NASCET criteria. 2. No acute intracranial thrombosis, stenosis, or aneurysm formation. POS: [facility]
[2018-05-12] MEDS: Rosuvastatin 20 MG TAB PO SCH (20:55)
[2018-05-12] MEDS: Carvedilol 6.25 MG TAB PO SCH (20:55)
--- NOTE | 2018-05-12 22:15 | HP ---
PRIMARY CARE PHYSICIAN: Anup Moses MD CHIEF COMPLAINT: Left-sided weakness. HISTORY OF PRESENT ILLNESS: This is an 82-year-old female patient with a history of known coronary a rtery disease, hypertension, hyperlipidemia, positive smoking, noncompliance, history of coronary art rose disease who presents to the Emergency Department with several days of progressively worsening lef t-sided weakness. The patient states that several days ago, she developed some headache in the back of her head and some dizziness, then progressed to left-sided weakness. She called Dr. Moses's offi ce and they asked her to present to the Emergency Department for evaluation. In the ED, she had an e valuation. She did have left-sided weakness and some slurred speech, which improved over time. Due to the timing, she was not a candidate for thrombolytics. She is now being admitted for further eval uation. She states that her left-sided weakness has improved since she has been in the Emergency Dep artment. She does have a history of TIAs in the past. The family reports that the patient stopped h er medicines and has not been compliant. She states that she did not take her medicines for the past 1-2 days, but family states that she may not have been taking it for the past several weeks up to a month. PAST MEDICAL HISTORY: Hyperlipidemia, hypertension, aortic valve insufficiency, coronary artery dise ase, history of TIA, hypothyroidism. MEDICATIONS: Aspirin 81 mg daily, Plavix 75 mg daily, lisinopril 20 mg daily, isosorbide mononitrate 30 mg daily, hydrochlorothiazide 25 mg daily, Crestor 20 mg daily, Coreg 6.25 mg b.i.d., nitroglycer in p.r.n., levothyroxine 88 mcg daily, amlodipine 5 mg daily, clonidine 0.1 mg b.i.d. p.r.n. PAST SURGICAL HISTORY: x1, spontaneous vaginal delivery x3, cardiac catheterization with s tent placement by Dr. Clay in 2008, lower extremity stents by Dr. Clay in 2008, cataracts b ilaterally in 2012, cardiac catheterization by Dr. Clay in 2014, cardiac catheterization with st ent in 2018, pacemaker placement in 2018, appendectomy remotely. FAMILY HISTORY: Father with liver cancer. Mother with coronary artery disease. SOCIAL HISTORY: Lives at home with her . Positive smoking. No alcohol use. REVIEW OF SYSTEMS: As per the history of present illness. Constitutional: She denies any recent fe vers, chills, or recent illness. HEENT: Positive for headache. No visual or hearing changes. Card iac: Denies chest pain at this time. No palpitations. Pulmonary: Denies cough or hemoptysis. Gas trointestinal: Denies nausea, vomiting, melena, or hematochezia. Genitourinary: Denies dysuria. S he states that she has had an abnormal urine test recently and was told to follow up with Dr. Moses' s office. Psychiatric: No history of depression or anxiety. PHYSICAL EXAMINATION: VITAL SIGNS: In the Emergency Department, afebrile, pulse of 99, respirations 16, blood pressure chai vated at 187/78. GENERAL: She is awake and alert. Speech is clear and fluid. NECK: Supple. Positive bruit on the right. CARDIAC: Regular rate and rhythm with 3/6 systolic ejection murmur at the right sternal border. LUNGS: Clear bilaterally. ABDOMEN: Obese, soft, nontender, nondistended. No hepatosplenomegaly. EXTREMITIES: No clubbing, cyanosis, or edema. MUSCULOSKELETAL: Left-sided weakness, decreased sensation on the left side. Cranial nerves II-XII a re grossly intact. Sensation is intact. LABORATORY AND X-RAY FINDINGS: White blood cell count 8800, hemoglobin and hematocrit 14.8 and 45.5, platelets of 158. PT normal at 13.3, PTT was elevated at 54.3. Sodium 143, potassium 4, chloride 1 04, CO2 of 29, BUN and creatinine 11 and 0.9. Serum glucose of 128. AST and ALT are normal. Tropon in I was less than 0.01. Last lipid panel in 12/2017, total cholesterol was 223, triglycerides of 25 6, HDL of 39. Urinalysis just revealing small leukocyte esterase. Chest x-ray in the Emergency Department revealed mild cardiomegaly without overt CHF, no cardiopulmon ada process, some abnormality in the lateral right mid upper lung zone not typical of atelectasis. B rain CT revealed no acute intracranial abnormality, chronic small vessel ischemic changes, stable enc ephalomalacia in the right anterior frontal lobe, remote lacunar infarct in the right basal ganglia. ASSESSMENT AND PLAN: This is an 82-year-old female patient with multiple medical problems including coronary artery disease, hypertension, hyperlipidemia, as well as tobacco abuse and noncompliance, no w with evidence of acute right cerebrovascular accident. 1. Likely cerebrovascular accident. We will obtain an MRI for better elucidation as well as carotid Dopplers. 2. History of coronary artery disease with aortic valve disease. We will recheck echocardiogram. 3. Hypertension. We will restart her medications along with p.r.n. clonidine. 4. Hyperlipidemia. We will continue her medications. 5. We will consult Neurology, Stroke Team including PT, OT, and Speech Therapy. 6. Code status: The patient desires DNR. We will follow those wishes.
[2018-05-13 08:14] LABS: Cardiac Risk 4.8 (Less than 4.5)
[2018-05-13] MEDS: Carvedilol 6.25 MG TAB PO SCH ×2 (08:54→15:02)
[2018-05-13] MEDS: Clopidogrel Bisulfate 75 MG TAB PO SCH (08:54)
[2018-05-13] MEDS: Levothyroxine Sodium 88 MCG TAB PO SCH (08:55)
[2018-05-13] MEDS: Lisinopril 20 MG TAB PO SCH (08:55)
[2018-05-13] MEDS ORDERED: Hydrochlorothiazide 25 MG TAB PO SCH (09:00)
[2018-05-13] MEDS ORDERED: Amlodipine 5 MG TAB PO SCH (09:00)
--- NOTE | 2018-05-13 09:47 | CON ---
DATE OF CONSULTATION: 05/13/2018 NEUROLOGY CONSULTATION IMPRESSION: 1. Lacunar stroke with left-sided weakness. 2. Hypertension. 3. Pacemaker. 4. Hyperlipidemia. PLAN: 1. Continue aspirin and Plavix. 2. Continue her statin. 3. PT evaluation and probable need to transfer to rehabilitation. Ms. Huang is an 82-year-old woman with past history as noted above. She developed left-sided weaknes s about 4 days ago. She did not seek immediate medical attention. She was subsequently sent to the emergency room yesterday. She had a CT of the brain which showed fairly extensive small vessel ische shaila changes. Her CT angio did not show any significant stenosis in the major vessels. Her left-side d weakness that she presented with has not improved. Her echocardiogram is pending, but she does not have a history of heart failure. Laboratory studies show unremarkable CBC, coags, and chemistry martinez . Her heart disease risk ratio was 4.8. She was taking aspirin and Plavix prior to admission. On exam, she is alert and appropriate. Her speech is fluent and clear. There is no cranial nerve as ymmetry noted. The left arm is slow in movement and rapid alternating movements are significantly de creased on the left. She has some mild left leg weakness as well. Plantar response was upgoing on t he left and downgoing on the right. Gait was not tested. She appears to have suffered a lacunar stroke with some increased weakness and diminished control of the left side. She is already on maximum medical therapy. I would continue her current treatment pl an and transfer to rehabilitation.
--- NOTE | 2018-05-13 10:23 | PRG ---
DATE OF SERVICE: 05/13/2018 SUBJECTIVE: The patient is feeling some better. She continues to have left-sided weakness in her up per and lower extremities. She denies chest pain or shortness of breath. Has not started therapy as of yet. She was evaluated by Dr. Maier, who agrees with plan and therapy. OBJECTIVE: VITAL SIGNS: Temperature 97.9, pulse of 68, respirations 16, blood pressure 183/71, pulse ox is 93% on room air. GENERAL: She is awake and alert, in no acute distress. NECK: Supple. Positive bruits. HEART: Regular rate and rhythm with 2/6 systolic ejection murmur. LUNGS: Clear. ABDOMEN: Soft. EXTREMITIES: With left-sided weakness in upper and lower extremities, decreased sensation, decreased peripheral pulses distally. LABORATORY DATA AND IMAGING: Reviewed. Total cholesterol 171, triglycerides of 105, LDL of 114, HDL of 36. A CT angiogram of the head and neck revealed no obvious infarct, carotids patent. ASSESSMENT AND PLAN: This is an 82-year-old female patient admitted with a right-sided lacunar infar ct resulting in left-sided hemiparesis. I appreciate Dr. Maier's input and assistance. I will con tinue aspirin, Plavix, and statin. Continue PT evaluation and if family agrees with transfer to [facility] rehabilitation, we will make that consultation as well.
[2018-05-13 15:14] LABS: PTT 35.1 SEC (22.9-36.1); Prothrombin Time 13.7 SEC (12.0-14.7)
--- NOTE | 2018-05-13 15:17 | CT ---
CT HEAD: Date: 05/13/18 Multiple axial tomograms obtained through the head without contrast. INDICATION: Stroke alert. FINDINGS: Comparison made to CT head from yesterday. No evidence of interval change. There are chronic ischemic changes. No evidence of acute cortical infarct, mass, or hemorrhage. IMPRESSION: No interval change noted. Findings relayed to Dr. Orlando at 1425 hours. CODE CR. POS: DUARTE
[2018-05-13 15:20] LABS: BHCG - Serum Negative (NEGATIVE); Pregs Control Background? CLEAR/WHITE (CLR/WHITE); Pregs Control Bar Appear? YES (CONTROL BAR)
[2018-05-13 15:30] LABS: CKMB 1.7 ng/mL (0-6.6)
[2018-05-13] MEDS ORDERED: Sodium Chloride 0.9% 500 ML IVPB SCH (15:45)
[2018-05-13 16:07] LABS: Troponin I Less than 0.010 ng/mL (< 0.028)
[2018-05-13] MEDS: Rosuvastatin 20 MG TAB PO SCH (20:54)
[2018-05-14] MEDS: Carvedilol 6.25 MG TAB PO SCH ×2 (08:54→20:43)
[2018-05-14] MEDS: Clopidogrel Bisulfate 75 MG TAB PO SCH (08:54)
[2018-05-14] MEDS: Levothyroxine Sodium 88 MCG TAB PO SCH (08:55)
[2018-05-14] MEDS ORDERED: Amlodipine 10 MG TAB PO SCH (09:00)
[2018-05-14] MEDS ORDERED: Aspirin 325 MG TAB PO SCH (09:00)
--- NOTE | 2018-05-14 09:27 | PRG ---
DATE OF SERVICE: 05/14/2018 SUBJECTIVE: The patient seems like she is doing better per the family and the patient. She continue s to have left-sided weakness in her upper and lower extremities. She is more awake and alert. Anabelle brown states that she did well with some therapy yesterday. She did have one episode of her blood press ure dropping after taking all of her medicines. A code green was called at that time due to her ment al status change, difficulty following instructions. When she was placed in Trendelenburg yesterday, her blood pressure came back up, she improved. She was given 2 boluses of normal saline, which got her blood pressure back up. Her blood pressure medicines have been adjusted and she has been doing m uch better since that time. No new symptoms. No new episodes of weakness. Again, no chest pain, sh ortness of breath or palpitations. PHYSICAL EXAMINATION: VITAL SIGNS: Temperature 98.0, pulse of 80, respirations 16, blood pressure 162/70, pulse ox 92% on room air. GENERAL: She is awake and alert. Speech is clear. NECK: Supple. HEART: Regular rate and rhythm with 2/6 systolic ejection murmur at right sternal border. LUNGS: Clear. ABDOMEN: Soft. EXTREMITIES: With left-sided weakness. IMAGING: A repeat CT after her code green showed no changes. No sign of cerebrovascular accident. Echocardiogram revealed ejection fraction of 60%-65%, small pericardial effusion, moderate concentric LVH, moderate aortic regurgitation, sclerotic aortic valve. ASSESSMENT AND PLAN: This is an 82-year-old female patient with a right-sided lacunar infarct result ing in left-sided hemiparesis. Continue aspirin, Plavix, and statin. I appreciate Neurology input. PT, OT and stroke team is working with her. 1. Hypertension. We will decrease her medications now that she is compliant. We will continue the carvedilol and lisinopril and stop the amlodipine and hydrochlorothiazide at this time. DISPOSITION: Awaiting approval from inpatient rehabilitation. She is stable for transfer once a bed is available.
[2018-05-14] MEDS: Lisinopril 20 MG TAB PO SCH (11:56)
[2018-05-14] MEDS: Rosuvastatin 20 MG TAB PO SCH (20:43)
[2018-05-15 04:51] LABS: Anion Gap 12 mmol/L (10-20); BUN (Urea Nitrogen) 13 mg/dL (9.8-20.1); Calc. Creatinine Clearance 57 mL/min (70-130); Calcium 9.2 mg/dL (7.8-10.44); Carbon Dioxide 27 mmol/L (23-31); Chloride 105 mmol/L (98-107); Estimated GFR-MDRD 71; Glucose 95 mg/dL (83-110); Sodium 140 mmol/L (136-145)
--- NOTE | 2018-05-15 07:52 | DIS ---
DATE OF ADMISSION: 05/12/2018 DATE OF DISCHARGE: 05/15/2018 DISCHARGE DIAGNOSES: 1. Right-sided lacunar infarct, resulting in left-sided hemiparesis. 2. Hypertension. 3. Hyperlipidemia. 4. Tobacco abuse. DISCHARGE MEDICATIONS: Aspirin 81 mg daily, Coreg 6.25 mg p.o. b.i.d., Plavix 75 mg daily, isosorbid e 15 mg daily, levothyroxine 88 mcg daily, lisinopril 20 mg daily, nitroglycerin p.r.n., Crestor 20 m g daily. BRIEF HISTORY: This is an 82-year-old white female with a history of coronary artery disease, hypert ension, hyperlipidemia, tobacco abuse, noncompliance, who presented to the emergency room with severa l days of progressively worsening left-sided weakness. It began with a headache in the back of her h ead and dizziness, which progressed to the weakness. She has a long history of continued tobacco abu se and uncontrolled blood pressure. She has been placed on many medications and compliance is in que stion. She also presented with slurred speech, and therefore, was admitted to the hospital. HOSPITAL COURSE: CT revealed no acute findings, although appears that she suffered a lacunar stroke. CT showed extensive small vessel ischemic changes and the CT angio did not show any significant blanca nosis of the major vessels. The patient has done quite well. Her left-sided weakness has improved d ramatically. She is still somewhat weak, but she is able to ambulate some. She will be transferred to rehab for physical therapy and titration of her blood pressure medications.
[2018-05-15] MEDS: Lisinopril 20 MG TAB PO SCH (09:41)
[2018-05-15] MEDS: Levothyroxine Sodium 88 MCG TAB PO SCH (09:43)
[2018-05-15] MEDS: Carvedilol 6.25 MG TAB PO SCH (09:43)
[2018-05-15] MEDS: Clopidogrel Bisulfate 75 MG TAB PO SCH (09:43)
[2018-05-15 16:21] VITALS: TEMP 97.9
[2018-05-16 07:57] VITALS: BP 197/79
== END 2018-05-15 16:40 | DRG 65 ==
LOC: ERS 11:39 → 2SE 17:03
PROVIDERS: ADMIT Family Medicine; ATTEND Family Medicine
DX: I63.9 Cerebral infarction, unspecified (principal); G81.94 Hemiplegia, unspecified affecting left nondominant side; I25.10 Atherosclerotic heart disease of native coronary artery without angina pectoris; E78.5 Hyperlipidemia, unspecified; F17.210 Nicotine dependence, cigarettes, uncomplicated; Z91.14 Patient's other noncompliance with medication regimen; Z95.0 Presence of cardiac pacemaker; Z86.73 Personal history of transient ischemic attack (TIA), and cerebral infarction without residual deficits; I10 Essential (primary) hypertension; E03.9 Hypothyroidism, unspecified; I35.1 Nonrheumatic aortic (valve) insufficiency; Z79.899 Other long term (current) drug therapy; Z79.02 Long term (current) use of antithrombotics/antiplatelets; Z95.5 Presence of coronary angioplasty implant and graft
CPT/HCPCS: 36415; 36416; 70450; 70496; 70498; 71045; 80048; 80053; 80061; 82550; 82553; 84484; 84703; 85025; 85610; 85730; 93005; 93010; 93306; 94760; G8978-GP-CK; G8979-GP-CI; G8987-GO-CK; G8988-GO-CI; G9165-GN-CL; G9166-GN-CI

== ENCOUNTER 2018-06-23 12:26 | Observation (INO) | payer MEDICARE, OTHER ==
[2018-06-23 13:14] LABS: Bilirubin Small (Negative); Blood, Urine Small (Negative); Clarity TURBID (Clear); Glucose, Urine (Dipstick) Negative (Negative); Leukocyte Large (Negative); Nitrite Negative (Negative); Protein, Urine (Dipstick) 30 mg/dL (Neg-Trace); Specific Gravity, Urine 1.017 (1.002-1.036)
[2018-06-23 13:14] LABS: #Basophils 0.1 thou/uL (0.0-0.2); #Eosinphils 0.1 thou/uL (0.0-0.7); #Lymphocytes 2.1 thou/uL (1.20-3.40); #Monocytes 0.4 thou/uL (0.11-0.59); #Neutrophils 5.2 thou/uL (1.40-6.50); %Basophils 0.6 % (0.0-1.0); %Eosinophils 1.5 % (0.0-10.0); %Lymphocytes 26.5 % (21.0-51.0); %Monocytes 5.4 % (0.0-10.0); Hemoglobin 12.5 g/dL (12.0-16.0); Mean Corpuscular HGB CONC 32.2 g/dL (32.0-36.0); Mean Corpuscular Hemoglobin 27.9 pg (27.0-31.0); Mean Corpuscular Volume 86.8 fL (78.0-98.0); Mean Platelet Volume 9.1 fL (7.4-10.4); Platelet Count 170 thou/uL (130-400); RBC Distribution Width 13.7 % (11.5-14.5); Red Blood Cell (RBC) Count 4.47 mill/uL (4.20-5.40); White Blood Cell (WBC) Count 7.9 thou/uL (4.8-10.8)
[2018-06-23 13:17] LABS: Bacteria/HPF 3+ HPF (None Seen)
[2018-06-23 13:18] LABS: Pathc Cast-AUWi Flag 3.01 (0-2.49); Yeast-AUWi Flag 335.7 (0-25.0)
[2018-06-23 13:29] LABS: Hyaline Casts/LPF 0-3 HYALINE CAST LPF (0-3 Hyaline); Other Casts/LPF None Seen LPF (0-3 Hyaline); WBC/HPF 21-50 HPF (0-3)
--- NOTE | 2018-06-23 13:34 | RAD ---
FRONTAL VIEW CHEST: Date: 06/23/18 COMPARISON: 05/12/18. INDICATION: Syncope. FINDINGS: The cardiac silhouette remains prominent. There is mild interstitial opacification of the bilateral p erihilar regions. No lobar consolidation, effusion, or pneumothorax. Chest is otherwise similar appea ring. IMPRESSION: Mild CHF. POS: LYNNK
[2018-06-23 13:37] LABS: ALT (SGPT) 8 U/L (8-55); AST (SGOT) 16 U/L (5-34); Albumin 3.6 g/dL (3.4-4.8); Alkaline Phosphatase 93 U/L (40-150); Anion Gap 13 mmol/L (10-20); BUN (Urea Nitrogen) 14 mg/dL (9.8-20.1); Bilirubin, Total 0.6 mg/dL (0.2-1.2); Calc. Creatinine Clearance 0 mL/min (70-130); Calcium 8.7 mg/dL (7.8-10.44); Carbon Dioxide 24 mmol/L (23-31); Chloride 101 mmol/L (98-107); Estimated GFR-MDRD 58; Globulin 2.5 g/dL (2.4-3.5); Glucose 126 mg/dL (83-110); Potassium 4.2 mmol/L (3.5-5.1); Protein, Total 6.1 g/dL (6.0-8.3); Sodium 134 mmol/L (136-145)
[2018-06-23] MEDS ORDERED: cefTRIAXone\\ROCEPHIN 2 GM VIAL ONE (14:18)
[2018-06-23 14:26] LABS: Bilirubin Small (Negative); Blood, Urine Negative (Negative); Clarity CLEAR (Clear); Glucose, Urine (Dipstick) Negative (Negative); Leukocyte Small (Negative); Nitrite Negative (Negative); Protein, Urine (Dipstick) Negative (Neg-Trace); Specific Gravity, Urine 1.017 (1.002-1.036); pH, Urine 6.5 (5.0-9.0)
[2018-06-23 14:27] LABS: Bacteria/HPF None Seen HPF (None Seen); Squamous Epithelial 0-3 HPF (0-3); WBC/HPF 0-3 HPF (0-3)
[2018-06-23 14:30] LABS: Pathc Cast-AUWi Flag 5.08 (0-2.49)
[2018-06-23 14:38] LABS: Other Casts/LPF 0-3 COARSE GRAN LPF (0-3 Hyaline)
[2018-06-23 16:39] VITALS: BMI 26.1
[2018-06-23] MEDS ORDERED: Senokot S 8.6-50 MG TAB PO PRN (16:48)
[2018-06-23] MEDS ORDERED: HYDROcodone/Acetaminophen 5/325 mg Tablet PO PRN (16:48)
[2018-06-23] MEDS ORDERED: Loperamide HCl 2 MG CAP PO PRN (16:48)
[2018-06-23] MEDS ORDERED: Acetaminophen 325 MG TAB PO PRN (16:48)
[2018-06-23] MEDS ORDERED: Nitroglycerin 0.4 MG TAB (25 Tab Bottle) SL PRN (16:53)
[2018-06-23] MEDS ORDERED: Ondansetron ODT 4 MG TAB SL PRN (16:57)
[2018-06-23] MEDS ORDERED: Ondansetron PF 4 MG/2 ML Vial IVP PRN (16:57)
[2018-06-23 17:26] LABS: Lactic Acid 0.9 mmol/L (0.5-2.2)
[2018-06-23] MEDS: Carvedilol 6.25 MG TAB PO SCH (20:30)
[2018-06-23] MEDS ORDERED: Famotidine 20 MG TAB PO SCH (21:00)
--- NOTE | 2018-06-24 01:31 | HP ---
HISTORY OF PRESENT ILLNESS: This is an 83-year-old white female with severe coronary artery disease, peripheral vascular disease who presents with syncope. The patient has a long history of tobacco use and continues to smoke regularly. She has had difficult to treat hypertension for many years. She was recently hospitalized in April with a CVA. She was seen by Dr. Osuna and discharged. She has done well until today when she has an episode of syncope. About noon today, she went to the bathroom and had a large bowel movement and felt pressure in her head. She went to her bed and continued to feel bad and then returned to the bathroom and at that point she passed out for approximately 2 minutes witnessed by her daughter. The patient said she is felt quit dizzy and hot. She had no complaints of any chest pain, shortness of breath, nausea, vomiting or diaphoresis. At this time, she feels back to baseline. The patient has been followed by Dr. Clay and Dr. Amador. She has severe peripheral vascular disease, which is inoperable. PAST MEDICAL HISTORY: Hypertension, concentric LVH, moderate aortic valve regurgitation, hyperlipidemia, tobacco abuse, hypothyroid. PAST SURGICAL HISTORY: Include pacemaker placement, multiple cardiac catheterizations with stent placements in 2018, 2015 and 2009. She has had 3 prior vaginal deliveries and 1 prior . FAMILY HISTORY: Father with liver cancer and mother with heart disease. SOCIAL HISTORY: She is a chain smoker, approximately 1 pack per day for the past 40 hours. MEDICATIONS: 1. Aspirin 81 daily. 2. Lisinopril 20 daily. 3. Isosorbide 30 daily. 4. Plavix 75 daily. 5. Hydrochlorothiazide 25 daily. 6. Crestor 20 daily. 7. Coreg 6.25 b.i.d. 8. Nitro p.r.n. 9. Levothyroxine 88 daily. 10. Norvasc 5 daily. 11. Clonidine 0.1 p.r.n. REVIEW OF SYSTEMS: As above. PHYSICAL EXAMINATION: VITAL SIGNS: Temperature 97.9, pulse 72, respirations 16, blood pressure 131/67. GENERAL: In no acute distress at this time. HEENT: Clear. NECK: Supple. HEART: Regular rate and rhythm with a 2/6 systolic ejection murmur. LUNGS: Clear. ABDOMEN: Soft. EXTREMITIES: No edema. LABORATORY DATA: White count 7.9, H and H 12 and 38. Sodium 134, potassium 4.2, creatinine 0.92, blood sugar 126, lactic acid 3.0. Troponin 1 less than 0.010. Urine with small leukocyte esterase, 0 to 3 wbc's and no bacteria noted. ASSESSMENT: 1. Syncope, may have been due to a vasovagal episode or hypoperfusion from other reasons. The patient could have experienced a dysrhythmia. 2. Coronary artery disease with multiple stents placed. 3. Peripheral vascular disease. 4. Tobacco abuse. 5. Moderate aortic regurgitation and moderate concentric left ventricular hypertrophy. 6. Hypertension. 7. Hyperlipidemia. 8. Pacemaker. PLAN: 1. Suspect the patient's syncope is related to hypoperfusion, possibly from a vasovagal reaction or could be from a cardiac dysrhythmia. The patient is presently on aspirin and Plavix. No further intervention possibly at this time. The patient's prognosis is poor. She has significant vascular disease. We will monitor her overnight on telemetry and see if she has a recurrent event related to possible cardiac dysrhythmia. 2. We will consult Dr. Clay. 3. Family is aware of her prognosis. 4. The patient is a cardiac code only. This basically means doing all treatment except for intubation. Job ID: [id number]
[2018-06-24 05:47] LABS: #Eosinphils 0.1 thou/uL (0.0-0.7); #Monocytes 0.4 thou/uL (0.11-0.59); #Neutrophils 4.2 thou/uL (1.40-6.50); %Basophils 0.6 % (0.0-1.0); %Eosinophils 2.1 % (0.0-10.0); %Lymphocytes 29.1 % (21.0-51.0); %Monocytes 6.5 % (0.0-10.0); %Neutrophils 61.7 % (42.0-75.0); Hemoglobin 12.3 g/dL (12.0-16.0); Mean Corpuscular HGB CONC 34.4 g/dL (32.0-36.0); Mean Corpuscular Hemoglobin 29.3 pg (27.0-31.0); Mean Corpuscular Volume 85.1 fL (78.0-98.0); Mean Platelet Volume 9.5 fL (7.4-10.4); Platelet Count 160 thou/uL (130-400); RBC Distribution Width 13.8 % (11.5-14.5); Red Blood Cell (RBC) Count 4.18 mill/uL (4.20-5.40); White Blood Cell (WBC) Count 6.8 thou/uL (4.8-10.8)
[2018-06-24] MEDS ORDERED: Levothyroxine Sodium 88 MCG TAB PO SCH (06:00)
[2018-06-24 06:02] LABS: Anion Gap 10 mmol/L (10-20); BUN (Urea Nitrogen) 10 mg/dL (9.8-20.1); Calc. Creatinine Clearance 63 mL/min (70-130); Calcium 9.4 mg/dL (7.8-10.44); Carbon Dioxide 28 mmol/L (23-31); Chloride 105 mmol/L (98-107); Estimated GFR-MDRD 81; Glucose 92 mg/dL (83-110); Potassium 3.9 mmol/L (3.5-5.1); Sodium 139 mmol/L (136-145)
[2018-06-24] MEDS: Carvedilol 6.25 MG TAB PO SCH (08:30)
[2018-06-24] MEDS: Lisinopril 10 MG TAB PO SCH ×2 (08:31→09:20)
[2018-06-24 08:56] LABS: Free T4 (Free Thyroxine) 1.2 ng/dL (0.70-1.48); Thyroid Stimulating Hormone 0.266 uIU/mL (0.35-4.94)
[2018-06-24] MEDS ORDERED: Clopidogrel Bisulfate 75 MG TAB PO SCH (09:00)
[2018-06-24] MEDS ORDERED: Simvastatin 5 MG TAB PO SCH (09:00)
[2018-06-24 11:42] VITALS: BP 130/63; TEMP 97.4
[2018-06-24] MEDS ORDERED: Carvedilol 6.25 MG TAB PO SCH (15:00)
[2018-06-24] MEDS ORDERED: Famotidine 20 MG TAB PO SCH (21:00)
--- NOTE | 2018-06-25 04:53 | DIS ---
DATE OF ADMISSION: 06/23/2018 DATE OF DISCHARGE: 06/24/2018 PRIMARY CARE PHYSICIAN: Anup Moses MD CHIEF COMPLAINT: Syncopal episode. HISTORY OF PRESENT ILLNESS: The patient with a longstanding history of vascular disease, both coronary artery disease and peripheral type, followed by Cardiology, and felt to be nonoperable to both central and periphery. The patient was maintained on aspirin and Plavix, BRIEN inhibitor, beta-alessio, and has previously been also on thiazide diuretic and Imdur. Cardiology saw the patient, does not wish to do anything procedural, but will taper the patient's BRIEN inhibitor and have removed the patient's Imdur and hold the patient's thiazide diuretic with increase in Coreg to compensate and discontinue any additional blood pressure agents such as amlodipine, keep the patient's BB BRIEN, statin, Plavix, and aspirin, and have the patient followup on an outpatient basis given the patient holding or discontinuing hydrochlorothiazide may be reasonable to recheck volume status, weight status and electrolytes on an outpatient basis. The patient is wishing to monitor blood pressure further with these changes satisfied and wants to go home, lives with daughter, is not interested in home health therapies. The patient did walk throughout the unit greater than 200 feet prior to discharge. Given urinalysis was skin contaminant, discussed covering with Keflex until possible recheck on an outpatient basis could be made as the patient was not interested in waiting for recheck of urinalysis. DISCHARGE MEDICATIONS: Include, 1. Lisinopril 10 mg. 2. Plavix 75 mg. 3. Clonidine 0.1 p.r.n. hypertension. 4. Keflex 500 mg 1 cap twice daily. 5. Coreg 6.25 mg t.i.d. 6. Aspirin 81 mg. 7. Zocor 10 mg. 8. Nitrostat 0.4 mg. 9. Levothyroxine 88 mcg. CONSULTATIONS: Included Dr. Haley, Cardiology. DISCHARGE DIET: Heart healthy. DISCHARGE CONDITION: Fair. DISCHARGE FOLLOWUP: Dr. Anup Moses, PCP within 7 days. Cardiology within the month. I believe the patient traditionally sees Dr. Clay on an outpatient basis. Job ID: [id number] [id number]
--- NOTE | 2018-06-25 21:23 | CON ---
DATE OF CONSULTATION: TYPE OF CONSULTATION: Cardiology. PRIMARY CARE DOCTOR: Anup Moses MD PRIMARY WINDOW GLASS CUTTER OFF: David Clay MD REFERRING PHYSICIAN: Anup Moses MD REASON FOR CARDIOLOGY CONSULT: Syncopal episode and end-stage CAD. HISTORY OF PRESENT ILLNESS: Ms. Huang is a very pleasant 83-year-old female with significant history of coronary artery disease with stent placement x2 and the last one was in September 2017, severe peripheral artery disease, history of stroke , and tobacco abuse. The patient presented to emergency department for syncopal episode yesterday. During that, she was using the bathroom for having BM. According to Dr. Clay's office notes, she is having the complaint of dizziness for almost that year. She had a carotid Doppler study that was done, showing [id number] stenosis in the carotid arteries, but no significant stenosis. According to the patient's family member, she had a dizziness but never passing out prior to the CVA event in April 2018. She had CVA with right-sided weakness about 6 weeks ago. She had syncopal episode twice in rehab and she had one yesterday. Prior to yesterday's syncopal episode, she felt she is blacking out and the next time she knew she was sitting in the bedside commode, but she did not fall because the family member is at the bedside. She denied any chest pain or discomfort in her chest, numbness or tingling or palpitation, fluttering in her chest, shortness of breath, or any cardiac complaints prior to this event or in the rehab. The patient's family member has been checking the patient's orthostatic blood pressure, which has been in the 110s to 120 over 60 to 70s. She had a pacemaker placement in September 2017. Currently, the pacemaker interrogation yesterday shows no significant event in the last couple of months. She had the history of stent placement, one in March 2010 and one in September 2017 in the RCA. 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 However, the patient was told that she was not a good candidate for any further procedure to her bilateral lower extremities by Dr. Amador yesterday. She had the history of CVA in April 2018 with left-sided weakness. She is using cane at this moment. Echocardiogram was done in April 2018; EF 60% to 65%, grade 1 diastolic dysfunction, mild mitral valve regurgitation, mildly dilated left atrium, moderate aortic valve regurgitation, mild tricuspid regurgitation, mild pulmonary regurgitation, and moderate left ventricular hypertrophy. PAST MEDICAL HISTORY: Coronary artery disease with stent placements x2, hypertension, hyperlipidemia, tobacco abuse, and CVA. PAST SURGICAL HISTORY: Stent placement twice, last one in September 2017 to the right mid RCA; history of appendectomy; history of bilateral cataract surgeries; and stent placement to the right RODRIGUEZ in 2013. ALLERGIES: NO KNOWN DRUG ALLERGIES. HOME MEDICATIONS: 1. Isosorbide mononitrate 15 mg once a day. 2. Levothyroxine 88 mcg once a day. 3. Aspirin 81 mg once a day. 4. Plavix 75 mg once a day. 5. Clonidine 0.1 mg every 2 hours as needed. 6. Lisinopril 20 mg once a day. 7. Carvedilol 6.25 mg twice a day. 8. Amlodipine 5 mg once a day. 9. Hydrochlorothiazide 25 mg once a day. 10. Simvastatin 10 mg once a day. 11. Nitroglycerin 0.4 mg sublingual as needed. REVIEW OF SYSTEMS: Twelve-point review of systems was negative, unless otherwise mentioned in the HPI. The patient complained of heartburn after eating at the dinner, but she does not have any symptoms after breakfast or lunch time. She has constipation, diarrhea at that time. She uses a cane after she had a stroke. However, she was very active prior to the event of CVA. FAMILY HISTORY: The patient's mother has myocardial infarction and pacemaker placement. The patient's father was due to the CVA at age of 67. The patient's first son has CVA at age of 57. The patient's second son has history of myocardial infarction at age of 52. The patient's daughter has a breast cancer. The patient's children have a history of diabetes. SOCIAL HISTORY: She is living with her . She is retired. She continues smoking half pack a day. She denies EtOH or illicit drug abuse. She drinks half cup of coffee in the morning, 2 glasses of tea at the daytime. She exercises at rehab since stroke. PHYSICAL EXAMINATION: VITAL SIGNS: Orthostatic blood pressure 144/63 in supine position, 102/57 in sitting position, 118/63 in standing position; heart rate of 66, pacing; temperature 98.2; respiratory rate 20; and O2 sat 93% on room air. GENERAL: The patient is alert and oriented x4, not in any acute distress. HEENT: Eyes; extraocular muscle movements are intact. ENT and mouth; oral and nasal mucosa moist without lesion. NECK: No JVD. Normal range of motion. Carotid pulses are present. RESPIRATORY: Clear to auscultation bilaterally. No wheezing, rales, or rhonchi noted. CARDIOVASCULAR: Regular rate and rhythm. Normal S1 and S2. There is no S3 or S4. There is significant murmur at the aortic valve next to the midsternal border. EXTREMITIES: There are very diminished pulses in bilateral lower extremities, but warmer to touch. No edema. ABDOMEN: Nontender. No masses palpated. Bowel sounds are present. SKIN: Warm, dry. No lesion, rash, or hematoma noticed. MUSCULOSKELETAL: The patient is able to move all extremities. PSYCHIATRIC: The patient's mood is appropriate. NEUROLOGIC: The patient is alert and oriented x4. Nonfocal. ASSESSMENT AND PLAN: 1. Dizziness, possibly secondary to the orthostatic hypotension. The patient's blood pressure dropped more than 20 points from supine position to the sitting position. The patient has history of moderate aortic valve stenosis/regurgitation. She has been taking amlodipine and hydrochlorothiazide, which have been hold during this admission. We would like to continue to hold and we would like to increase the carvedilol from 6.25 twice a day to 3 times a day. If the patient tolerates well with that dosage, we would like to increase to 12.5 twice a day. The patient's pacemaker interrogation shows no significant event last few months. 2. Coronary artery disease with history of stent placement twice in right coronary artery. The patient's condition is stable at this moment, she is on the beta-alessio, lisinopril, aspirin, and Plavix. 3. Severe peripheral artery disease to bilateral lower extremities. At this moment, the patient denies any claudication. No ulcer or cold to touch. She was not a good candidate for any further procedure to her bilateral lower extremities by surgeon. We would like to continue to monitor. We encouraged the patient to increase the exercise walking regimen. 4. Hypertension. The patient's blood pressure is stable at this moment. We would like to continue to monitor. 5. Hyperlipidemia. She is on the simvastatin 10 mg once a day. 6. Pacemaker placement in September 2017. The patient's latest pacemaker interrogation shows no significant event. The patient is going to follow up with Dr. Clay's office for yearly pacemaker checkup and a [facility] every 3 months. 7. Tobacco abuse. She continues to smoke half pack a day. Smoking cessation indications were given to the patient and the family member. At this moment, the patient does not want to stop smoking unfortunately. Thank you very much for allowing the cardiology service to participate in the care of this patient. We will follow along with the patient's care team and make further recommendations as appropriate. Job ID: [id number]
--- NOTE | 2018-06-26 08:17 | CON ---
DATE OF CONSULTATION: 06/24/2018 REASON FOR CONSULTATION AND HISTORY OF PRESENT ILLNESS: An 83-year-old female with syncopal episode. She has had a recent CVA. She has had a couple of episodes. This is her third episode of syncope. She had 2 also while being in the hospital. Previously, she has been into rehab, and now, she is back at home, and she was sitting on the toilet and her daughter was very nearby and noticed that all of a sudden she had become unresponsive while on the toilet and then eventually she just collapsed. The daughter placed her down and then actually did some respiratory assistance and then the patient started to breathe again and appeared to be coming out of the episode, but did feel to be somewhat lightheaded prior to the event according to the patient. She did not appear to be postictal, and most likely, this was a cardiac event. She has had a pacemaker insertion and this was interrogated and was found to have normal function. There was no event during the time of the episode and perhaps she is orthostatic and most likely had a vagal episode, but mainly, it was due to orthostatic hypotension. She is on multiple medications for hypertension and also has been on diuretics. Her sodium was slightly decreased and I suspect she was somewhat over diuresed. Otherwise, this could have been a slight TIA or some other event, but we will continue to monitor the patient very closely. From a cardiac standpoint, she appears to be stable otherwise, except for possible hypotension. She did have some orthostatic blood pressures evaluated, and she did have a systolic blood pressure of 144, which then decreased down to which would indicate certainly as orthostasis in this elderly female. At this time, she is comfortable and she has no complaints. She still has some residual right-sided weakness after a CVA. Her laboratory data otherwise was unremarkable for any acute events. The WBC was not elevated to indicate infection. Her hemoglobin is 12.3. Sodium was 134 on admission and was increased up to 139. Her potassium was stable; it was 4.2, it is now 3.9. Her blood sugar was slightly elevated at 126 and is now down to 92. She was slightly acidotic, but most likely this is due to the acute event. Otherwise, her laboratory data is relatively unremarkable for someone of her age. For the full note, please refer to the notes dictated by my nurse practitioner for her past medical history, social history, family history, medications, review of systems, and allergies. Physical examination reveals an elderly female, who is in no acute distress at this time. She is alert and oriented. Her blood pressure this morning is 128/62 and her heart rate is in the 60s. She appears to be in sinus rhythm. I did not see any pacing at this time. On the pacemaker evaluation that was performed yesterday when the patient was admitted, she is pacing in the ventricle only about 2% of the time and she is pacing in the atrium only about less than 10% of the time. She has atrial sensing and ventricular sensing about 92% of the time. She did have some high atrial rates in the past; however, her last high atrial rate which appeared to be SVT or sinus tachycardia, was in April. There were no events noted at this time. She did have some short episodes of nonsustained ventricular tachycardia also, the longest of which is just a few seconds, and there was none noted yesterday when she had the event. Otherwise, the pacemaker function appears to be normal. PHYSICAL EXAMINATION: GENERAL: Reveals an elderly female, with no acute distress. VITAL SIGNS: As noted. HEENT: Shows head to be normocephalic and atraumatic. NECK: Carotid pulses are present. She does not have any significant bruits. She does have some radiation from the aortic area up into the carotids, but there are no significant bruits. CHEST: Clear to auscultation without rales, rhonchi, or wheezing. CARDIOVASCULAR: Reveals a regular rate and rhythm. She has normal S1 and S2 and a very soft systolic murmur is noted over the aortic area. She also has a well-healed surgical incision over the pacemaker site in the left infraclavicular area. ABDOMEN: Soft and nontender. Positive bowel sounds are present. No organomegaly or masses were noted. She has abdominal bruit. EXTREMITIES: Show no clubbing, cyanosis, or edema. Pedal pulses are not palpable. IMPRESSION AND PLAN: 1. Syncopal episode, which may be due to orthostatic hypotension or possibly neurologic, but she did not appear to be postictal, making me to think that this is more a cardiovascular problem with the hypotension since the pacemaker appeared to be normal with normal function and no evidence of any bradycardia episodes otherwise. I will readjust some of her medications. I will stop the hydrochlorothiazide. We will also hold off on the amlodipine. If necessary, we can increase her Coreg. Previously she was on 25 mg twice a day prior to the admission back in April. This was omitted from the office notes that she was taking 25 b.i.d. At this time, she is only taking 6.25 according to the records, and we will need to adjust that medication Should she develop hypertension, she will not have bradycardia with the pacemaker, but prior to admission period, she also may have been taking 6.25 for some time. We will stop the amlodipine. We will discontinue the hydrochlorothiazide and see whether or not she has any congestive heart failure symptoms. She has had at her most recent echocardiogram when she was in the hospital on May 13, and this showed ejection fraction to be 60% to 65%. She does have aortic valve sclerosis and some moderate as well as moderate AI, and this may also be contributing some to her events. If she become hypotensive obviously with aortic valve stenosis, this would decrease her cardiac output even further. We are more than happy to continue to follow the patient with you. She also has some indication of some diastolic dysfunction. We will continue to follow the patient very carefully on observation for the next 24 to 48 hours. I advised her to get up and walk around to see whether or not she has any symptoms at all and to see whether or not she becomes orthostatic. The family is at the bedside. We will assist. 2. History of aortic valve stenosis and aortic valve regurgitation. We will continue to follow this. She is not a very good candidate for any valvular intervention at this time. 3. Peripheral vascular disease. She has completely occluded vascular access on one side and I cannot palpate any pulses. 4. History of tobacco abuse. Unfortunately, she continues to smoke and I have strongly encouraged her to stop smoking altogether. Her daughter says she is the one who buys cigarettes, and the patient smokes about 6 cigarettes a day, which I have informed her that this is way too many cigarettes for this lady who has had so many vascular problems. 5. History of coronary artery disease. She recently underwent angioplasty and stent placement to the distal right coronary artery after presenting back in September with a cox-GU-ucocduh elevation myocardial infarction. She also had a stenosis noted about 60% in the diagonal branch and she has previous stents placed in the proximal right coronary artery as well as in the distal right coronary artery. At this time, we will continue to follow her and the adjustments will be made as noted. Job ID: [id number]
== END 2018-06-24 12:08 | disposition home or self-care (01) ==
LOC: ERS 12:26 → 2SW 14:00
PROVIDERS: ADMIT Family Medicine; ATTEND Family Medicine
DX: R55 Syncope and collapse (principal); I25.10 Atherosclerotic heart disease of native coronary artery without angina pectoris; I10 Essential (primary) hypertension; I69.951 Hemiplegia and hemiparesis following unspecified cerebrovascular disease affecting right dominant side; I73.9 Peripheral vascular disease, unspecified; I35.1 Nonrheumatic aortic (valve) insufficiency; F17.210 Nicotine dependence, cigarettes, uncomplicated; E78.5 Hyperlipidemia, unspecified; E03.9 Hypothyroidism, unspecified; Z95.0 Presence of cardiac pacemaker; Z95.5 Presence of coronary angioplasty implant and graft; Z79.82 Long term (current) use of aspirin; Z79.02 Long term (current) use of antithrombotics/antiplatelets; Z79.899 Other long term (current) drug therapy; Z79.2 Long term (current) use of antibiotics; Z98.890 Other specified postprocedural states
CPT/HCPCS: 51701; 71045; 80048; 80053; 82962; 83605; 84439; 84443; 84481; 84484; 85025 ×2; 87040; 87086; 93005; 96374; 97139; 99285; G0378 ×2; 36415; 36416; 81003; 81015; A4353; J0696

== ENCOUNTER 2019-11-26 14:49 | Observation (INO) | payer MEDICARE, OTHER ==
[2019-11-26 15:22] LABS: #Basophils 0.1 thou/uL (0.0-0.2); #Eosinphils 0.1 thou/uL (0.0-0.7); #Lymphocytes 1.8 thou/uL (1.20-3.40); #Monocytes 0.3 thou/uL (0.11-0.59); %Basophils 1.3 % (0.0-1.0); %Eosinophils 1.3 % (0.0-10.0); %Lymphocytes 28.6 % (21.0-51.0); %Monocytes 4.7 % (0.0-10.0); %Neutrophils 64.1 % (42.0-75.0); Hemoglobin 13.2 g/dL (12.0-16.0); Mean Corpuscular HGB CONC 32.7 g/dL (32.0-36.0); Mean Corpuscular Hemoglobin 28.2 pg (27.0-31.0); Mean Corpuscular Volume 86.1 fL (78.0-98.0); Mean Platelet Volume 10.5 fL (7.4-10.4); Platelet Count 148 thou/uL (130-400); RBC Distribution Width 13.2 % (11.5-14.5); Red Blood Cell (RBC) Count 4.67 mill/uL (4.20-5.40); White Blood Cell (WBC) Count 6.2 thou/uL (4.8-10.8)
--- NOTE | 2019-11-26 15:25 | CT ---
Exam: Head CT without contrast HISTORY: Syncope. Headache. COMPARISON: 05/13/2018 FINDINGS: Hemorrhage: No intraparenchymal hemorrhage or extra-axial hematoma. Brain parenchyma: With the exception of the right frontal lobe, cortical novak-white matter differenti ation is preserved. No mass effect or midline shift. Basilar cisterns are patent.Hypodensities due to chronic small vessel ischemic change. Encephalomalacia and gliosis in the right frontal lobe. Ventricular system: Ventricles and sulci are patent and symmetric. Calvarium: Intact. Sinuses and mastoid air cells: Adequate aeration. IMPRESSION: No acute intracranial process.
--- NOTE | 2019-11-26 15:31 | RAD ---
EXAM: CHEST ONE VIEW HISTORY: Syncope. COMPARISON: 06/23/2018 FINDINGS: Dual lead left subclavian cardiac pacemaking device remains in place. There is an electronic device o verlying the left hilar region . This was not seen on prior exam. Cardiac silhouette is enlarged. Pulmonary vasculature is within normal limits. The lungs remain clear. Vascular calcifications are ag ain seen in the thoracic aorta. No other interval change. IMPRESSION: 1. Cardiomegaly. Cardiac silhouette is larger in size compared to the prior study. 2. Electronic device overlying mediastinum and left hilar region. This was not seen on prior exam. 3. No acute cardiopulmonary process.
[2019-11-26 16:02] LABS: ALT (SGPT) Less than 7 U/L (8-55); AST (SGOT) 14 U/L (5-34); Albumin 4.1 g/dL (3.4-4.8); Alkaline Phosphatase 128 U/L (40-110); Anion Gap 13 mmol/L (10-20); BUN (Urea Nitrogen) 17 mg/dL (9.8-20.1); Bilirubin, Total 0.4 mg/dL (0.2-1.2); Calc. Creatinine Clearance 0 mL/min (70-130); Calcium 9.1 mg/dL (7.8-10.44); Carbon Dioxide 28 mmol/L (23-31); Chloride 106 mmol/L (98-107); Estimated GFR-MDRD 57; Globulin 2.8 g/dL (2.4-3.5); Glucose 135 mg/dL (83-110); Protein, Total 6.9 g/dL (6.0-8.3); Sodium 143 mmol/L (136-145)
[2019-11-26] MEDS ORDERED: Ondansetron PF 4 MG/2 ML Vial IVP PRN (17:01)
[2019-11-26] MEDS ORDERED: Acetaminophen 325 MG TAB PO PRN (17:01)
--- NOTE | 2019-11-26 17:06 | PDOC.HHP ---
Hospitalist HPI - History of Present Illness syncope History of Present Illness: This is an 84 year old female with past medical history of CAD s/p stents, hypertension, who presented to the ER with syncope. The patient was in her garage and her daughter was cutting her hair when she started feeling warm, dizzy and lightheaded. Her daughter then told her she had passed out for 3-5 minutes and was not responsive. She denied chest pain or palpitations prior to the event. 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 The last time the patient passed out was two years ago and that time it occurred after she had used the bathroom. The patient states she had an event monitor placed by Dr. Clay on 11/21 and she is supposed to wear it until 12/12. She did not push the button during this episode so no arrhythmias were able to be detected. The patient does have a history of a murmur and states that she had an ECHO last month. ED Course: Vitals showed temp of 97.5, BP 154/71, HR 78, RR 26, oxygen saturation 98% on room air. The patient had an EKG which showed T wave inversions in V4-V6 which is old. Troponin was negative x 1. Labs were unremarkable except elevated ALP 128 which is not new. Chest X ray showed cardiomegaly. CT brain was negative. Hospitalist ROS - Review of Systems Constitutional: denies: fever, chills ENT: denies: ear pain, ear discharge Respiratory: denies: cough, shortness of breath Cardiovascular: denies: chest pain, palpitations, orthopnea Gastrointestinal: denies: nausea, vomiting, abdominal pain, diarrhea - Medication Medications: Amlodipine 2.5 mg daily Aspirin 81 mg daily Plavix 75 mg daily Simvastatin 10 mg qhs Hospitalist History - Past Medical History Other Medical History: Cad s/p stent - Past Surgical History Other Surgical History: No surgeries - Family History Other Family History: Mother had heart disease - Social History Smoking Status: Current every day smoker (been smoking since age 28) Alcohol: reports: None Drugs: reports: none Living Situation: Other (lives with daughter) - Exam General Appearance: NAD, awake alert Eye: PERRL, anicteric sclera ENT: normocephalic atraumatic, no oropharyngeal lesions Neck: no JVD Heart: RRR, no gallops, no rubs Heart - other findings: systolic murmur heard right and left second intercostal space Respiratory: CTAB, no wheezes, no rales, no ronchi Gastrointestinal: soft, non-tender, non-distended, normal bowel sounds Extremities: no cyanosis, no clubbing, no edema Skin: normal turgor, no lesions, no rashes Neurological: cranial nerve grossly intact, normal sensation to touch, no focal deficits, no new deficit Musculoskeletal: normal tone, normal strength, no muscle wasting Psychiatric: normal affect, normal behavior, A&O x 3, oriented to person Hospitalist Results - Labs Result Diagrams: 11/26/19 15:11 11/26/19 15:11 Lab results: WBC 6.2 thou/uL (4.8-10.8) 11/26/19 15:11 Hgb 13.2 g/dL (12.0-16.0) 11/26/19 15:11 Hct 40.3 % (36.0-47.0) 11/26/19 15:11 MCV 86.1 fL (78.0-98.0) 11/26/19 15:11 Plt Count 148 thou/uL (130-400) 11/26/19 15:11 Neutrophils % 64.1 % (42.0-75.0) 11/26/19 15:11 Sodium 143 mmol/L (136-145) 11/26/19 15:11 Potassium 4.0 mmol/L (3.5-5.1) 11/26/19 15:11 Chloride 106 mmol/L (98-107) 11/26/19 15:11 Carbon Dioxide 28 mmol/L (23-31) 11/26/19 15:11 BUN 17 mg/dL (9.8-20.1) 11/26/19 15:11 Creatinine 0.93 mg/dL (0.6-1.1) 11/26/19 15:11 Glucose 135 mg/dL (83-110) H 11/26/19 15:11 Calcium 9.1 mg/dL (7.8-10.44) 11/26/19 15:11 Total Bilirubin 0.4 mg/dL (0.2-1.2) 11/26/19 15:11 AST 14 U/L (5-34) 11/26/19 15:11 ALT Less than 7 U/L (8-55) L 11/26/19 15:11 Alkaline Phosphatase 128 U/L (40-110) H 11/26/19 15:11 Troponin I 0.025 ng/mL (< 0.028) 11/26/19 15:11 Serum Total Protein 6.9 g/dL (6.0-8.3) 11/26/19 15:11 Albumin 4.1 g/dL (3.4-4.8) 11/26/19 15:11 - EKG Interpretation EKG: normal sinus rhythm with T wave inversions in V4-V6 Hospitalist H&P A/P - Plan Plan: This is an 84 year old female with past medical history of CAD sp stent, aortic regurgitation, who presented with ER with syncope Syncope- likely vasovagal. Rule out cardiac etiology - likely vasovagal due to warm environment prior to passing out. However will check orthostatics due to dizzinedss - Monitor on telemetry. Trend troponin. She does have an event monitor - cardiology consult - PT eval CAD s/p stent - continue aspirin and plavix Hypertension - will hold amlodipine for now Tobacco abuse - nicotine patch DVT prophylaxis: SCDS Code status: full code
[2019-11-26] MEDS ORDERED: Labetalol HCl 100 MG/20 ML VIAL ONE (18:10)
[2019-11-26 19:03] LABS: Troponin I 0.021 ng/mL (< 0.028)
[2019-11-26 19:20] VITALS: BMI 22.7
[2019-11-26] MEDS ORDERED: Labetalol HCl 100 MG/20 ML VIAL SLOW IVP PRN (19:47)
[2019-11-26] MEDS ORDERED: hydrALAZINE 20 MG/ML VIAL SLOW IVP PRN (19:47)
[2019-11-26] MEDS ORDERED: Amlodipine 5 MG TAB PO SCH (20:00)
[2019-11-26] MEDS ORDERED: Famotidine/PF 20 mg/2ml Vial SLOW IVP SCH (21:00)
[2019-11-26] MEDS: Nicotine 14 MG PATCH TD SCH ×2 (21:16→21:29)
[2019-11-26 22:24] LABS: Troponin I 0.019 ng/mL (< 0.028)
[2019-11-27 05:21] LABS: #Basophils 0.1 thou/uL (0.0-0.2); #Eosinphils 0.1 thou/uL (0.0-0.7); #Lymphocytes 2.1 thou/uL (1.20-3.40); #Monocytes 0.4 thou/uL (0.11-0.59); #Neutrophils 3.5 thou/uL (1.40-6.50); %Basophils 0.9 % (0.0-1.0); %Lymphocytes 33.5 % (21.0-51.0); %Neutrophils 56.6 % (42.0-75.0); Hemoglobin 11.6 g/dL (12.0-16.0); Mean Corpuscular HGB CONC 33.2 g/dL (32.0-36.0); Mean Corpuscular Hemoglobin 28.6 pg (27.0-31.0); Mean Corpuscular Volume 86.1 fL (78.0-98.0); Mean Platelet Volume 10.5 fL (7.4-10.4); Platelet Count 136 thou/uL (130-400); Red Blood Cell (RBC) Count 4.05 mill/uL (4.20-5.40); White Blood Cell (WBC) Count 6.2 thou/uL (4.8-10.8)
[2019-11-27 05:33] LABS: Anion Gap 11 mmol/L (10-20); BUN (Urea Nitrogen) 12 mg/dL (9.8-20.1); Calc. Creatinine Clearance 48 mL/min (70-130); Calcium 8.7 mg/dL (7.8-10.44); Carbon Dioxide 28 mmol/L (23-31); Chloride 108 mmol/L (98-107); Estimated GFR-MDRD 70; Glucose 83 mg/dL (83-110); Potassium 3.8 mmol/L (3.5-5.1); Sodium 143 mmol/L (136-145)
[2019-11-27] MEDS: Simvastatin 5 MG TAB PO SCH (08:31)
[2019-11-27] MEDS: Clopidogrel Bisulfate 75 MG TAB PO SCH (08:31)
[2019-11-27] MEDS: Aspirin Chewable 81 MG TAB PO SCH (08:31)
--- NOTE | 2019-11-27 15:30 | DIS ---
DATE OF ADMISSION: 11/26/2019 DATE OF DISCHARGE: 11/27/2019 DISCHARGE DIAGNOSES: 1. Syncope vs presyncope secondary to hypertensive urgency vs aortic stenosis . 2. Aortic regurgitation. 3. Aortic stenosis 4. Anemia CONSULTATIONS: Cardiology with Dr. Clay. PROCEDURES: None. BRIEF HISTORY OF PRESENT ILLNESS: This is an 84-year-old female with a past medical history of aortic regurgitation, who presented to the emergency room with a syncopal episode that occurred while the patient was in her garage getting a haircut by her daughter. The patient passed out for a few minutes and felt warm slightly prior. However she told her geologist petroleum later that she did not pass out. She did not have any jerking of her arms or legs. There was no urinary incontinence or tongue biting. She did have an event monitor placed by Dr. Clay on the . She presented to the ER for further evaluation. EKG showed T-wave inversions in V4 to V6. Chest x-ray showed cardiomegaly. CT brain was negative. She was admitted for further workup. HOSPITAL COURSE: Syncope possibly from hypertensive urgency vs aortic stenosis : Orthostatic blood pressures were negative on admission. Her blood pressures were actually elevated with a blood pressure of 179/76. On 11/26 her blood pressure had increased to 200 systolic while supine. Amlodipine was increased to 10 mg daily. Her blood pressure improved to 170 systolic so losartan 25 mg daily was added. Her blood pressure improved to 140's. Repeat orthostatics on the day of discharge were positive with supine blood pressure 160 and standing 110 systolic. However the patient was asymptomatic with no dizziness or lightheadedness. Therefore she will be discharged on amlodipine 10 mg and losartan 25 mg daily. She had no arrhythmias on telemetry. Three troponins were normal. Cardiology was consulted and a cardiac cath was offered due to history of severe aortic stenosis noted on prior ECHO done last month. Patient refused and wanted to discuss with her family. She is stating that she will most likely do this as an outpatient. She will follow up with her PCP in a week and Dr. Clay in a week. Tobacco abuse: The patient was prescribed nicotine patch on discharge. DISCHARGE PHYSICAL EXAMINATION: VITAL SIGNS: Temperature 97.7, heart rate 87, respiratory rate 17, O2 saturation 93% on room air, and blood pressure 146/64 GENERAL: The patient is alert, awake, and oriented x3. CVS: The patient has a loud diastolic murmur on the right second intercostal space. LUNGS: Clear to auscultation bilaterally. ABDOMEN: Positive bowel sounds, soft, nontender, nondistended. EXTREMITIES: No edema. LABORATORY DATA: CBC on 11/27/2019:mild anemia with a hemoglobin 11.6, hematocrit 34.9. BMP 11/26: Unremarkable. Troponin I: 0.025, 0.021, 0.019. Alkaline phosphatase: 128. IMAGING STUDIES: CT brain 11/25: Shows no acute intracranial process. Chest x-ray 11/25: Shows cardiomegaly. DISCHARGE CONDITION: Stable. ACTIVITY: As tolerated. DIET: Heart healthy diet. DISCHARGE INSTRUCTIONS: The patient to follow up with her PCP in a week and Dr. Clay in a week. DISCHARGE MEDICATIONS: 1. Nicotine patch 14 mg TD q.24. 2. Amlodipine 5 mg p.o. daily. 3. All other home medications were resumed. Job ID: [id number] [facility]
[2019-11-27] MEDS ORDERED: Amlodipine 5 MG TAB PO SCH ×2 (16:45→21:15)
[2019-11-27] MEDS: Nicotine 14 MG PATCH TD SCH (17:15)
--- NOTE | 2019-11-27 17:59 | PDOC.HOSPP ---
- Subjective Encounter Date: 11/27/19 Encounter Time: 15:00 Subjective: THe patient is doing well. No chest pain, lightheadedness or dizziness. BP was 200 overnight. Increased amlodipine to 5 mg daily. BP improved to 130 but then this afternoon increased to 200 systolic again. Patient was seen by Dr. Clay and she refused cardiac cath and wanted to discuss with family - Objective Vital Signs & Weight: Vital Signs (12 hours) Temp Pulse Pulse Resp BP BP BP 11/27/19 17:15 68 11/27/19 16:00 224/92 H 11/27/19 15:00 80 202/89 H 11/27/19 12:00 97.8 F 68 17 177/71 H 11/27/19 11:48 98 F 60 17 132/62 11/27/19 09:00 97.8 F 63 18 171/67 H 11/27/19 08:00 98.1 F 61 17 156/67 H Pulse Ox 11/27/19 17:15 11/27/19 16:00 11/27/19 15:00 11/27/19 12:00 95 11/27/19 11:48 93 L 11/27/19 09:00 98 11/27/19 08:00 94 L Weight Weight 128 lb 6.4 oz I&O: 11/26/19 11/27/19 11/28/19 06:59 06:59 06:59 Intake Total 50 Output Total 1 Balance 49 Result Diagrams: 11/27/19 05:02 11/27/19 05:02 Hospitalist ROS - Medication Medications: Active Medications Generic Name Dose Route Start Last Admin Trade Name Darline PRN Reason Stop Dose Admin Amlodipine Besylate 5 mg 11/27/19 16:45 11/27/19 17:15 Norvasc PO 11/27/19 18:45 5 mg NOW JOANNA Administration Aspirin 81 mg 11/27/19 09:00 11/27/19 08:31 Aspirin Chewable PO 81 mg DAILY JOANNA Administration Clopidogrel Bisulfate 75 mg 11/27/19 09:00 11/27/19 08:31 Plavix PO 75 mg DAILY JOANNA Administration Nicotine 14 mg 11/26/19 18:00 11/27/19 17:15 Nicoderm Patch TD 14 mg Q24HR JOANNA Administration Simvastatin 10 mg 11/27/19 09:00 11/27/19 08:31 Zocor PO 10 mg DAILY JOANNA Administration - Exam General Appearance: NAD, awake alert Eye: PERRL, anicteric sclera ENT: normocephalic atraumatic, no oropharyngeal lesions Neck: supple, no JVD Heart: RRR, no gallops, no rubs Heart - other findings: loud diastolic murmur heard over second intercostal space Respiratory: CTAB, no wheezes, no rales, no ronchi Gastrointestinal: soft, non-tender, non-distended, normal bowel sounds Extremities: no cyanosis, no clubbing, no edema Skin: normal turgor, no lesions, no rashes Hosp A/P - Plan This is an 84 year old female with past medical history of CAD sp stent, aortic regurgitation, who presented with ER with syncope Syncope- likely vasovagal vs high blood pressure - likely vasovagal due to warm environment prior to passing out. Orthostatics negative - Monitor on telemetry. - troponin negative times three - cardiology consulted, patient refused cardiac cath Hypertensive Urgency - BP > 200 systolic. Increased amlodipine to 5 mg daily - will monitor overnight and see if further increase needed CAD s/p stent - continue aspirin and plavix Tobacco abuse - nicotine patch
--- NOTE | 2019-11-27 18:34 | CON ---
DATE OF CONSULTATION: 11/27/2019 REASON FOR CONSULTATION: Presyncope. HISTORY OF PRESENT ILLNESS: Ms. Huang is a very pleasant 84-year-old woman with a history of CAD, status post stent placement in addition to severe PVD, not amenable by percutaneous intervention or with a fem-pop bypass, who recently presented with presyncope. She states she was at a beauty salon when she got hot. She states she felt like she is going to pass out, but did not. No chest pain, pressure, or associated symptoms. Her last echo here in the office 1 month ago did suggest severe aortic stenosis with a mean and peak gradient of 44 and 75 respectively. She deferred any further therapy at that time and had no significant symptoms. PAST MEDICAL HISTORY: Hyperlipidemia, hypertension, severe PVD, CAD, nonsustained VT, stroke, severe aortic stenosis, tobacco abuse, hypothyroidism, aortic insufficiency. HOME MEDICATIONS: 1. Zocor. 2. Nitrostat. 3. Plavix. 4. Clonidine. 5. Coreg. 6. Aspirin. 7. Amlodipine. PAST SURGICAL HISTORY: Previous stent placement with complete occlusion of the common iliac artery, , pacemaker placement, stent placement. SOCIAL HISTORY: As above. REVIEW OF SYSTEMS: A 10-point review of systems is reviewed and is as above, otherwise negative. PHYSICAL EXAMINATION: GENERAL: Patient is a pleasant woman, who is in no acute distress. The patient appears her stated age. VITAL SIGNS: Blood pressure 177/71, pulse 68, temperature 97.8. NEUROLOGIC: The patient is alert and oriented x3 with no focal neurologic deficits. HEENT: Sclerae without icterus. Mouth has moist mucous membranes with normal pallor. NECK: No JVD. Carotid upstroke brisk. No bruits bilaterally. LUNGS: Clear to auscultation with unlabored respirations. BACK: No scoliosis or kyphosis. CARDIAC: Regular rate and rhythm with 2/6 systolic ejection murmur. ABDOMEN: Soft, nontender, nondistended. No peritoneal signs present. No hepatosplenomegaly. No abnormal striae. EXTREMITIES: 2+ femoral and 2+ dorsalis pedis pulses. No cyanosis, clubbing, or edema. Palpable right common femoral pulse. Nonpalpable left common femoral pulse. SKIN: No gross abnormalities. LABORATORY DATA: Hemoglobin 11.6, hematocrit 34.9. Creatinine 0.78. IMPRESSION: 1. Presyncope. 2. Tobacco abuse. 3. Coronary artery disease. 4. Severe peripheral vascular disease. RECOMMENDATIONS: Her symptoms may likely be related to aortic stenosis. I discussed risks and benefits of proceeding with coronary angiography to further assess the aortic valve in addition to coronary anatomy. She has deferred as she did in the office. She did not have true syncopal events. From my standpoint, it will be okay for discharge with close outpatient followup. She would like to discuss further with her family before proceeding with a more invasive approach. Job ID: [id number]
[2019-11-27] MEDS ORDERED: Famotidine/PF 20 mg/2ml Vial SLOW IVP SCH (21:00)
[2019-11-28] MEDS: Clopidogrel Bisulfate 75 MG TAB PO SCH (08:37)
[2019-11-28] MEDS: Aspirin Chewable 81 MG TAB PO SCH (08:37)
[2019-11-28] MEDS: Simvastatin 5 MG TAB PO SCH (08:37)
[2019-11-28] MEDS ORDERED: Amlodipine 10 MG TAB PO SCH (09:00)
[2019-11-28] MEDS ORDERED: Losartan 25 MG TAB PO SCH (09:00)
[2019-11-28 11:56] VITALS: BP 146/64; TEMP 97.7
--- NOTE | 2019-11-28 18:41 | PRG ---
DATE OF SERVICE: 11/28/2019 SUBJECTIVE: Ms. Huang is doing better. Her blood pressures have decreased. She has no current complaints. No recurrent syncope. OBJECTIVE: VITAL SIGNS: Blood pressure 170/70, pulse 80, respirations 20. LUNGS: Clear to auscultation. HEART: 2/6 systolic ejection murmur. ABDOMEN: Soft, nontender, nondistended. EXTREMITIES: No edema. IMPRESSION: 1. Severe aortic stenosis. 2. Presyncope. 3. Tobacco abuse. RECOMMENDATIONS: Ms. Huang would like to think about her options. She is not interested in proceeding with an invasive procedure. We would recommend follow up with me in 1 to 2 weeks for further discussion. Job ID: [id number]
--- NOTE | 2019-12-01 11:53 | EKG ---
Test Reason : SYNCOPE Blood Pressure : / mmHG Vent. Rate : 073 BPM Atrial Rate : 073 BPM P-R Int : 150 ms QRS Dur : 078 ms QT Int : 410 ms P-R-T Axes : 056 -10 162 degrees QTc Int : 451 ms Normal sinus rhythm Possible Left atrial enlargement Left ventricular hypertrophy with repolarization abnormality Abnormal ECG Confirmed by NAVNEET GRANADO ([id number]), slot editor YUMIKO GARCIA ([id number] on 12/01/2019 11:53:12 AM Referred By: Confirmed By:NAVNEET Kelly
== END 2019-11-28 13:38 | disposition home or self-care (01) ==
LOC: ERS 14:49 → 2SE 16:31
PROVIDERS: ADMIT Internal Medicine; ATTEND Internal Medicine
DX: R55 Syncope and collapse (principal); I16.0 Hypertensive urgency; I25.10 Atherosclerotic heart disease of native coronary artery without angina pectoris; I73.9 Peripheral vascular disease, unspecified; I35.2 Nonrheumatic aortic (valve) stenosis with insufficiency; D64.9 Anemia, unspecified; F17.210 Nicotine dependence, cigarettes, uncomplicated; E78.5 Hyperlipidemia, unspecified; Z79.82 Long term (current) use of aspirin; Z79.899 Other long term (current) drug therapy; Z95.5 Presence of coronary angioplasty implant and graft; Z95.0 Presence of cardiac pacemaker
CPT/HCPCS: 36415; 70450; 71045; 80048; 80053; 84484; 85025; 93005; 96361; 96374; 96375; 96376; G0378; J0360; S0028

== ENCOUNTER 2019-11-29 14:56 | Observation (INO) | payer MEDICARE, OTHER ==
[2019-11-29 16:23] LABS: #Eosinphils 0.1 thou/uL (0.0-0.7); #Lymphocytes 1.9 thou/uL (1.20-3.40); #Monocytes 0.5 thou/uL (0.11-0.59); #Neutrophils 3.9 thou/uL (1.40-6.50); %Basophils 0.5 % (0.0-1.0); %Eosinophils 1.6 % (0.0-10.0); %Lymphocytes 29.8 % (21.0-51.0); %Monocytes 7.7 % (0.0-10.0); %Neutrophils 60.5 % (42.0-75.0); Hemoglobin 13.5 g/dL (12.0-16.0); Mean Corpuscular HGB CONC 32.8 g/dL (32.0-36.0); Mean Corpuscular Hemoglobin 28.2 pg (27.0-31.0); Mean Corpuscular Volume 86.1 fL (78.0-98.0); Mean Platelet Volume 10.3 fL (7.4-10.4); Platelet Count 150 thou/uL (130-400); RBC Distribution Width 13.1 % (11.5-14.5); Red Blood Cell (RBC) Count 4.79 mill/uL (4.20-5.40); White Blood Cell (WBC) Count 6.4 thou/uL (4.8-10.8)
[2019-11-29 16:45] LABS: ALT (SGPT) Less than 7 U/L (8-55); AST (SGOT) 18 U/L (5-34); Albumin 3.9 g/dL (3.4-4.8); Alkaline Phosphatase 127 U/L (40-110); Anion Gap 16 mmol/L (10-20); BUN (Urea Nitrogen) 22 mg/dL (9.8-20.1); Bilirubin, Total 0.5 mg/dL (0.2-1.2); CK (CPK) 142 U/L (29-168); Calc. Creatinine Clearance 0 mL/min (70-130); Calcium 8.8 mg/dL (7.8-10.44); Carbon Dioxide 24 mmol/L (23-31); Chloride 106 mmol/L (98-107); Estimated GFR-MDRD 56; Globulin 2.6 g/dL (2.4-3.5); Glucose 84 mg/dL (83-110); Potassium 4.5 mmol/L (3.5-5.1); Protein, Total 6.5 g/dL (6.0-8.3); Sodium 141 mmol/L (136-145)
[2019-11-29 17:07] LABS: CKMB 3.7 ng/mL (0-6.6)
--- NOTE | 2019-11-29 17:17 | RAD ---
SINGLE VIEW OF THE CHEST: 11/29/19 COMPARISON: 11/26/19. HISTORY: Chest pain. FINDINGS: Single view of the chest shows an enlarged cardiomediastinal silhouette. The pacemaker is unchanged i n position. There is no evidence of consolidation, mass or pleural effusion. Degenerative changes are seen in the spine. IMPRESSION: Cardiomegaly. POS: EAA
[2019-11-29] MEDS ORDERED: Aspirin 325 MG TAB ONE (17:26)
[2019-11-29] MEDS ORDERED: Nitroglycerin 2% Ointment 1 INCH/1 GM Packet ONE (17:28)
[2019-11-29] MEDS ORDERED: Ondansetron PF 4 MG/2 ML Vial IVP PRN (18:04)
[2019-11-29] MEDS ORDERED: Acetaminophen 325 MG TAB PO PRN (18:04)
[2019-11-29] MEDS ORDERED: Calcium Carbonate 500 MG ChewTAB PO PRN (18:04)
[2019-11-29] MEDS ORDERED: Nitroglycerin 0.4 MG TAB (25 Tab Bottle) SL PRN (18:05)
[2019-11-29] MEDS ORDERED: hydrALAZINE 20 MG/ML VIAL SLOW IVP PRN (18:07)
--- NOTE | 2019-11-29 18:08 | PDOC.HHP ---
Hospitalist HPI - History of Present Illness chest pain History of Present Illness: This is an 84 year old female with CAD s/p MD and PCI, aortic stenosis, hypertension who presented to the ER with chest pain. The patient states that after she took her medications last night her chest started hurting. She described it as a sharp pain in the middle of her chest, lasted for about thirty minutes, was nonradiating. It went away spontaneously. She did eat food shortly before that. She had no shortness of breath during the incident but had a dry mouth. She had some dizziness at the time, but no sweating. She did not pass out. She walked today and had no chest pain or SOB on exertion. She denies fevers, chills, runny nose, sore throat. The patient was recently admitted three days ago for syncopal episode. She had uncontrolled hypertension during that hospitalization and was discharged on amlodipine 10 mg and losartan 25 mg which she has been taking daily , and has not skipped any doses. She was seen by Dr. Clay in consultation and was offered a cardiac cath, but declined and wanted to discuss further with her family. At the time of discharge, patient stated that she would most likely do the cath as an outpatient. ED Course: THe patient presented to the ER with a blood pressure of 174 systolic. Rest of vitals were unremarkable. Chest X ray showed cardiomegaly. EKG showed T wave inversions in 1 and AVL. First troponin was positive at 0.035. The patient received aspirin 325 mg and nitro paste. Currently she reports n chest pain. Hospitalist ROS - Review of Systems Constitutional: denies: fever, chills Eyes: denies: pain, vision change ENT: denies: ear pain, ear discharge Respiratory: denies: cough, dry, shortness of breath Cardiovascular: denies: chest pain, palpitations, orthopnea Gastrointestinal: denies: nausea, vomiting, abdominal pain, diarrhea Genitourinary: denies: dysuria, frequency Musculoskeletal: denies: neck pain, shoulder pain - Medication Medications: Aspirin 81 mg daily Plavix 75 mg daily Losartan 25 mg daily Amlodipine 10 mg daily Simvastatin 10 mg qhs Hospitalist History - Past Medical History Other Medical History: CAD s/p MD and PCI Severe aortic stenosis Hypertension - Past Surgical History Other Surgical History: No surgeries - Family History Other Family History: Mother with heart disease - Social History Smoking Status: Former smoker (Quit smoking two days ago, former smoker for 30 years) Alcohol: reports: None Drugs: reports: none - Exam General Appearance: NAD, awake alert Eye: PERRL, anicteric sclera ENT: normocephalic atraumatic Neck: supple, no JVD Heart - other findings: systolic murmur right second intercostal space Respiratory: CTAB, no wheezes, no rales, no ronchi Gastrointestinal: soft, non-tender, non-distended, normal bowel sounds Extremities: no cyanosis, no clubbing, no edema Skin: normal turgor, no lesions, no rashes Neurological: cranial nerve grossly intact, normal sensation to touch, no focal deficits, no new deficit Musculoskeletal: normal tone, normal strength, no muscle wasting Psychiatric: normal affect, normal behavior, A&O x 3 Hospitalist Results - Labs Result Diagrams: 11/29/19 16:13 11/29/19 16:13 Lab results: WBC 6.4 thou/uL (4.8-10.8) 11/29/19 16:13 Hgb 13.5 g/dL (12.0-16.0) 11/29/19 16:13 Hct 41.2 % (36.0-47.0) 11/29/19 16:13 MCV 86.1 fL (78.0-98.0) 11/29/19 16:13 Plt Count 150 thou/uL (130-400) 11/29/19 16:13 Neutrophils % 60.5 % (42.0-75.0) 11/29/19 16:13 Sodium 141 mmol/L (136-145) 11/29/19 16:13 Potassium 4.5 mmol/L (3.5-5.1) 11/29/19 16:13 Chloride 106 mmol/L (98-107) 11/29/19 16:13 Carbon Dioxide 24 mmol/L (23-31) 11/29/19 16:13 BUN 22 mg/dL (9.8-20.1) H 11/29/19 16:13 Creatinine 0.95 mg/dL (0.6-1.1) 11/29/19 16:13 Glucose 84 mg/dL (83-110) 11/29/19 16:13 Calcium 8.8 mg/dL (7.8-10.44) 11/29/19 16:13 Total Bilirubin 0.5 mg/dL (0.2-1.2) 11/29/19 16:13 AST 18 U/L (5-34) 11/29/19 16:13 ALT Less than 7 U/L (8-55) L 11/29/19 16:13 Alkaline Phosphatase 127 U/L (40-110) H 11/29/19 16:13 Creatine Kinase 142 U/L (29-168) 11/29/19 16:13 CK-MB (CK-2) 3.7 ng/mL (0-6.6) 11/29/19 16:13 Troponin I 0.035 ng/mL (< 0.028) H 11/29/19 16:13 Serum Total Protein 6.5 g/dL (6.0-8.3) 11/29/19 16:13 Albumin 3.9 g/dL (3.4-4.8) 11/29/19 16:13 - EKG Interpretation EKG: T wave inversions in I and AVL. normal sinus rhythm Hospitalist H&P A/P - Plan Plan: Chest Xray: cardiomegaly #Chest pain #Aortic stenosis - has some new EKG change with T wave inversion in I and AVL. Has indeterminate troponin. Continue to trend, monitor on telemetry - continue aspirin and statin - cardiology consulted, will keep NPO for possible cath #Hypertensive urgency - BP was 170 on presentation1 - continue amlodipine for now -hold losartan in anticipation of cath - hydralazine IV prn for SBP > 180 DVT prophylaxis: lovenox Code status: full code
[2019-11-29] MEDS ORDERED: Enoxaparin Sodium 40 MG/0.4 ML SYRINGE SC SCH (18:15)
[2019-11-29] MEDS ORDERED: Nicotine 14 MG PATCH TD SCH (18:30)
[2019-11-29 19:27] VITALS: BMI 22.4
[2019-11-29 22:13] LABS: Troponin I 0.031 ng/mL (< 0.028)
[2019-11-29 23:57] LABS: Troponin I 0.034 ng/mL (< 0.028)
[2019-11-30 05:11] LABS: Anion Gap 14 mmol/L (10-20); BUN (Urea Nitrogen) 18 mg/dL (9.8-20.1); Calc. Creatinine Clearance 44 mL/min (70-130); Calcium 8.5 mg/dL (7.8-10.44); Carbon Dioxide 22 mmol/L (23-31); Chloride 108 mmol/L (98-107); Estimated GFR-MDRD 64; Glucose 82 mg/dL (83-110); Potassium 4.3 mmol/L (3.5-5.1); Sodium 140 mmol/L (136-145)
[2019-11-30 06:23] LABS: #Basophils 0.1 thou/uL (0.0-0.2); #Eosinphils 0.1 thou/uL (0.0-0.7); #Lymphocytes 1.9 thou/uL (1.20-3.40); #Monocytes 0.4 thou/uL (0.11-0.59); #Neutrophils 3.1 thou/uL (1.40-6.50); %Basophils 1.4 % (0.0-1.0); %Eosinophils 2.5 % (0.0-10.0); %Lymphocytes 33.6 % (21.0-51.0); %Monocytes 7.7 % (0.0-10.0); %Neutrophils 54.8 % (42.0-75.0); Hemoglobin 12.3 g/dL (12.0-16.0); Mean Corpuscular HGB CONC 31.8 g/dL (32.0-36.0); Mean Corpuscular Hemoglobin 27.9 pg (27.0-31.0); Mean Corpuscular Volume 87.7 fL (78.0-98.0); Mean Platelet Volume 10.7 fL (7.4-10.4); Platelet Count 148 thou/uL (130-400); RBC Distribution Width 13.1 % (11.5-14.5); White Blood Cell (WBC) Count 5.6 thou/uL (4.8-10.8)
[2019-11-30] MEDS ORDERED: Midazolam HCl 2 mg/2 ml Vial ONE (07:42)
[2019-11-30] MEDS ORDERED: Fentanyl 100 MCG/2 ML VIAL ONE (07:42)
[2019-11-30] MEDS ORDERED: hydrALAZINE 20 MG/ML VIAL ONE (08:35)
[2019-11-30] MEDS ORDERED: Clopidogrel Bisulfate 75 MG TAB PO SCH ×2 (09:00→13:30)
[2019-11-30] MEDS ORDERED: Amlodipine 10 MG TAB PO SCH (09:00)
[2019-11-30] MEDS ORDERED: Aspirin Chewable 81 MG TAB PO SCH ×2 (09:00→13:30)
[2019-11-30 09:11] VITALS: TEMP 97.4
[2019-11-30] MEDS ORDERED: Iopamidol 370 76% 100 ML VIAL ONE (09:41)
[2019-11-30] MEDS ORDERED: hydrALAZINE 20 MG/ML VIAL SLOW IVP SCH (10:00)
[2019-11-30] MEDS ORDERED: Nitroglycerin 0.4 MG TAB (25 Tab Bottle) SL PRN (10:41)
[2019-11-30] MEDS ORDERED: Acetaminophen/Codeine 30-300mg Tablet PO PRN ×2 (10:41)
[2019-11-30] MEDS ORDERED: Sodium Chloride 0.9% 200 ML IV PRN (10:41)
[2019-11-30] MEDS ORDERED: Sodium Chloride 0.9% 1,000 ML IV SCH ×2 (10:45→11:30)
[2019-11-30 11:22] VITALS: BP 127/61
--- NOTE | 2019-11-30 13:57 | PRG ---
DATE OF SERVICE: 11/30/2019 Ms. Huang is currently doing well. No current complaints. She was diagnosed with severe aortic stenosis. [id number] coronary artery disease. We would recommend transfer to [facility] for TAVR. The patient is agreeable. I discussed case with Dr. Jagdeep Malik. Job ID: [id number]
--- NOTE | 2019-11-30 16:48 | DIS ---
DATE OF ADMISSION: 11/29/2019 DATE OF DISCHARGE: 11/30/2019 DISCHARGE DIAGNOSES: 1. Chest pain, likely secondary to severe aortic stenosis, hypertensive urgency, moderate coronary artery disease. 2. Elevated alkaline phosphatase. CONSULTATIONS: Cardiology with Dr. David Clay. PROCEDURES: Cardiac cath. BRIEF HISTORY OF PRESENT ILLNESS: This is an 84-year-old female with past medical history of CAD, status post PCI, aortic stenosis, hypertension, who presented to the emergency room with chest pain. The patient reported that she had some chest pain in the middle of her chest that lasted for about 30 minutes. It was nonradiating. She was previously admitted 3 days prior for syncopal episode. She was treated for hypertensive urgency during the hospitalization and was offered a cardiac cath procedure with history of aortic stenosis. However, the patient declined. She presented to the emergency room for further evaluation. Upon arrival to the emergency room, her blood pressure was 174 systolic. Her troponin was positive at 0.035. She was admitted for further workup. HOSPITAL COURSE: Chest pain, possibly secondary to severe aortic stenosis: The patient had an EKG, which showed T-wave inversions in I and aVL. Her troponins were trended and came down to 0.031. She was given aspirin, nitroglycerin paste with no further recurrence of her chest pain. She underwent a cardiac cath, which showed 30% stenosis of her left anterior descending artery, 50% stenosis of her circumflex. She was noted to have severe aortic stenosis. She was thought to need transaortic valve replacement and was transferred to [facility] for further evaluation. Her losartan was held on the morning of her catheterization. However, she was given her amlodipine. Hypertensive urgency: The patient has presented to the emergency room with a blood pressure of 170. Her amlodipine was continued. Her losartan was held. On the day of discharge, she was given IV hydralazine and her blood pressure did improve to 127. Her losartan can be resumed tomorrow. DISCHARGE PHYSICAL EXAMINATION: VITAL SIGNS: Temperature 97.4, heart rate 60, respiratory rate 20, O2 saturation 94% on room air, blood pressure 127/61. GENERAL: The patient is alert, awake, oriented x3. CVS: Regular rate and rhythm. She has a loud systolic murmur in the right second intercostal space. LUNGS: Clear to auscultation bilaterally. ABDOMEN: Positive bowel sounds, soft, nontender, nondistended. EXTREMITIES: No edema. PERTINENT LABORATORY DATA: CBC on 11/20: White count 5.6, hemoglobin 12.3, hematocrit 38.6, platelet count of 148. BMP on 11/29: Sodium 140, potassium 4.3, chloride 108, carbon dioxide 22, BUN 18, creatinine 0.84, glucose 82. LFTs: AST 18, ALT 7, ALP 127. Troponin I: 0.035, 0.031, 0.034. IMAGING: Chest x-ray on 11/28: Shows cardiomegaly. DISCHARGE CONDITION: Stable. DISPOSITION: The patient will be transferred to [facility] for TAVR. ACTIVITY: As tolerated. DIET: Heart healthy diet. MEDICATIONS: 1. Sodium chloride at 75 mL/h. 2. Nicotine transdermal 14 mg q.24. 3. Amlodipine 10 mg p.o. daily. 4. Aspirin 81 mg p.o. daily. 5. Plavix 75 mg p.o. daily. 6. Hydralazine 10 mg IV q.4 hours p.r.n. 7. Nitroglycerin 0.4 mg sublingual q.5 minutes p.r.n. 8. Tylenol 650 mg p.o. q.4 hours p.r.n. DISCHARGE INSTRUCTIONS: The patient will be transferred to [facility] for evaluation of TAVR. Job ID: [id number] MTDD
--- NOTE | 2019-12-01 15:10 | EKG ---
Test Reason : Blood Pressure : / mmHG Vent. Rate : 075 BPM Atrial Rate : 075 BPM P-R Int : 140 ms QRS Dur : 084 ms QT Int : 356 ms P-R-T Axes : 038 -19 144 degrees QTc Int : 397 ms Sinus rhythm with Premature supraventricular complexes Left atrial enlargement Left ventricular hypertrophy with repolarization abnormality Abnormal ECG Confirmed by EJ MARTÍNEZ, RAVI Martinez ([id number]), tape editor YUMIKO GARCIA ([id number] on 12/01/2019 3:09:29 PM Referred By: Confirmed By:RAVI PAGAN MD
== END 2019-11-30 14:31 | disposition short-term general hospital (02) ==
LOC: ERS 14:56 → 2NO 18:31
PROVIDERS: ADMIT Internal Medicine; ATTEND Internal Medicine
PROC: 4A023N8 Measurement of Cardiac Sampling and Pressure, Bilateral, Percutaneous Approach (ICD-10-PCS; principal; 2019-11-29)
PROC: B2111ZZ Fluoroscopy of Multiple Coronary Arteries using Low Osmolar Contrast (ICD-10-PCS; 2019-11-29)
DX: I25.10 Atherosclerotic heart disease of native coronary artery without angina pectoris (principal); I35.0 Nonrheumatic aortic (valve) stenosis; I16.0 Hypertensive urgency; I51.7 Cardiomegaly; R74.8 Abnormal levels of other serum enzymes; Z79.82 Long term (current) use of aspirin; Z79.899 Other long term (current) drug therapy; Z87.891 Personal history of nicotine dependence
CPT/HCPCS: 71045; 76942; 80048; 80053; 82550; 82553; 84484 ×2; 85025 ×2; 93005; 93460; 93561; 96372; 96374; 99285; C1769; G0378 ×3; 36415; 99152; 99153; J0360; J1644; J1650; J2250; J3010; Q9967

== ENCOUNTER 2020-08-07 10:55 | Observation (INO) | payer MEDICARE, OTHER ==
[2020-08-07 12:05] LABS: #Basophils 0.1 thou/uL (0.0-0.2); #Eosinphils 0.1 thou/uL (0.0-0.7); #Lymphocytes 1.4 thou/uL (1.20-3.40); #Monocytes 0.3 thou/uL (0.11-0.59); #Neutrophils 3.7 thou/uL (1.40-6.50); %Eosinophils 2.4 % (0.0-10.0); %Lymphocytes 25.2 % (21.0-51.0); %Monocytes 5.4 % (0.0-10.0); Hemoglobin 10.9 g/dL (12.0-16.0); MDiff Complete? YES; Mean Corpuscular HGB CONC 32.1 g/dL (32.0-36.0); Mean Corpuscular Hemoglobin 26.7 pg (27.0-31.0); Mean Corpuscular Volume 83.1 fL (78.0-98.0); Mean Platelet Volume 10.3 fL (7.4-10.4); Platelet Count 119 thou/uL (130-400); Platelet Morphology Comment Appears Decreased; Polychromasia SLIGHT = 2-3 cells (100X) (0-2/hpf); RBC Distribution Width 14.6 % (11.5-14.5); Red Blood Cell (RBC) Count 4.06 mill/uL (4.20-5.40); White Blood Cell (WBC) Count 5.5 thou/uL (4.8-10.8)
[2020-08-07 12:13] LABS: ALT (SGPT) Less than 7 U/L (8-55); AST (SGOT) 15 U/L (5-34); Albumin 3.6 g/dL (3.4-4.8); Alkaline Phosphatase 125 U/L (40-110); Anion Gap 13 mmol/L (10-20); BUN (Urea Nitrogen) 19 mg/dL (9.8-20.1); Bilirubin, Total 0.3 mg/dL (0.2-1.2); Calc. Creatinine Clearance 0 mL/min (70-130); Calcium 8.8 mg/dL (7.8-10.44); Carbon Dioxide 27 mmol/L (23-31); Chloride 106 mmol/L (98-107); Globulin 2.6 g/dL (2.4-3.5); Glucose 152 mg/dL (83-110); Potassium 4.3 mmol/L (3.5-5.1); Protein, Total 6.2 g/dL (6.0-8.3); Sodium 142 mmol/L (136-145)
--- NOTE | 2020-08-07 13:18 | RAD ---
SINGLE VIEW OF THE CHEST: COMPARISON: 11/29/2019. HISTORY: Syncope. FINDINGS: A single view of the chest shows an enlarged but stable cardiomediastinal silhouette. The pacemaker is unchanged in position. The patient is status post aortic valve repair. There is no evidence of c onsolidation, mass, or pleural effusion. The bones are unremarkable. IMPRESSION: Stable cardiomegaly. POS: AH
--- NOTE | 2020-08-07 14:40 | PDOC.HHP ---
Hospitalist HPI - History of Present Illness Syncope History of Present Illness: Ms. Huang is an 85-year-old female with a past medical history of aortic stenosis status post TAVR, hypertension, hyperlipidemia, coronary artery disease status post cardiac stenting thousand 15, peripheral vascular disease status post left femoral stent, hypothyroidism who presents to the emergency room for syncopal event. Patient reports that this morning she felt clammy nauseous and lightheaded. She went to grab a cold cloth for her head and shortly after she sat down she lost consciousness. Her witnessed the syncopal event and called 911. EMS arrived and reported that patient was very lethargic with a h eart rate in the 40s systolic blood pressure in 70s. Patient does have a permanent pacemaker which was sent for interrogation. Currently patient is hemodynamically stable with heart rate of 75, BP 169/78. She reports she feels back to her baseline. She denies any occult deficits, denies any numbness tingling weakness or paresthesias. She denies any chest pain or shortness of breath prior to during or after this episode. She reports she does have a history of syncopal episodes in the past and reports she occasionally gets lightheaded. In emergency room 169/78, 108, 75, 18, 98.1, 96% room air. EKG shows an atrial paced rhythm with LVH and a heart rate of 75. Submillimeter downsloping ST segment. Initial troponin 0 0.021. H/H 10.9/33.8, WBC 5.5, platelet 119. BUN/CR 19/1.16. Sodium 142, potassium 4.3, glucose 152. Chest x-ray with no acute findings BNP 744. Patient admitted to hospitalist service for observation. Hospitalist ROS - Review of Systems Constitutional: denies: fever, chills, sweats, weakness, malaise, other Eyes: denies: pain, vision change, conjunctivae inflammation, eyelid inflammation, redness, other ENT: denies: ear pain, ear discharge, nose pain, nose discharge, nose congestion, mouth pain, mouth swelling, throat pain, throat swelling, other Respiratory: denies: cough, dry, shortness of breath, hemoptysis, SOB with excertion, pleuritic pain, sputum, wheezing, other Cardiovascular: denies: chest pain, palpitations, orthopnea, paroxysmal noc. dyspnea, edema, light headedness, other Gastrointestinal: denies: nausea, vomiting, abdominal pain, diarrhea, const ipation, melena, hematochezia, other Genitourinary: denies: dysuria, frequency, incontinence, hematuria, retention, other Musculoskeletal: denies: neck pain, shoulder pain, arm pain, back pain, hand pain, leg pain, foot pain, other Skin: denies: rash, lesions, satish, bruising, other Neurological: denies: weakness, numbness, incoordination, change in speech, confusion, seizures, other - Medication Medications: Home medications include Simvastatin Losartan Plavix Aspirin Norvasc Hospitalist History - Past Medical History Other Medical History: Past medical history significant for Hypertension Hyperlipidemia Aortic stenosis status post TAVR Permanent pacemaker Coronary artery disease status post cardiac stents in 2014 Peripheral vascular disease status post left femoral stent - Past Surgical History Other Surgical History: Past medical history includes Cardiac stent ~15 Left femoral stent TAVR Permanent pacemaker - Social History Smoking Status: Never smoker Alcohol: reports: None Drugs: reports: none Living Situation: With Family Activity level: independent ambulation - Exam General Appearance: NAD, awake alert Eye: PERRL, anicteric sclera ENT: normocephalic atraumatic, no oropharyngeal lesions, dry oral mucosa Neck: supple, symmetric, no JVD, no thyromegaly, no lymphadenopathy, no carotid bruit Heart: RRR, no gallops, no rubs, normal peripheral pulses, murmur present Respiratory: CTAB, no wheezes, no rales, no ronchi, normal chest expansion, no tachypnea, normal percussion Gastrointestinal: soft, non-tender, non-distended, normal bowel sounds, no palpable masses, no hepatomegaly, no splenomegaly, no bruit Extremities: no cyanosis, no clubbing, no edema Skin: normal turgor, no lesions, no rashes Neurological: cranial nerve grossly intact, normal sensation to touch, no weakness, no focal deficits, no new deficit Musculoskeletal: normal tone Psychiatric: normal affect, normal behavior, A&O x 3 Hospitalist Results - Labs Result Diagrams: 08/07/20 11:36 08/07/20 11:36 Lab results: WBC 5.5 thou/uL (4.8-10.8) 08/07/20 11:36 Hgb 10.9 g/dL (12.0-16.0) L 08/07/20 11:36 Hct 33.8 % (36.0-47.0) L 08/07/20 11:36 MCV 83.1 fL (78.0-98.0) 08/07/20 11:36 Plt Count 119 thou/uL (130-400) L 08/07/20 11:36 Neutrophils % 66.0 % (42.0-75.0) 08/07/20 11:36 Sodium 142 mmol/L (136-145) 08/07/20 11:36 Potassium 4.3 mmol/L (3.5-5.1) 08/07/20 11:36 Chloride 106 mmol/L (98-107) 08/07/20 11:36 Carbon Dioxide 27 mmol/L (23-31) 08/07/20 11:36 BUN 19 mg/dL (9.8-20.1) 08/07/20 11:36 Creatinine 1.16 mg/dL (0.6-1.1) H 08/07/20 11:36 Glucose 152 mg/dL (83-110) H 08/07/20 11:36 Calcium 8.8 mg/dL (7.8-10.44) 08/07/20 11:36 Total Bilirubin 0.3 mg/dL (0.2-1.2) 08/07/20 11:36 AST 15 U/L (5-34) 08/07/20 11:36 ALT Less than 7 U/L (8-55) L 08/07/20 11:36 Alkaline Phosphatase 125 U/L (40-110) H 08/07/20 11:36 Troponin I 0.021 ng/mL (< 0.028) 08/07/20 11:36 B-Natriuretic Peptide 744.1 pg/mL (0-100) H 08/07/20 11:36 Serum Total Protein 6.2 g/dL (6.0-8.3) 08/07/20 11:36 Albumin 3.6 g/dL (3.4-4.8) 08/07/20 11:36 Hospitalist H&P A/P - Plan Plan: Syncope 85-year-old female with past medical history of aortic stenosis status post TAVR, hypertension, hyperlipidemia, CVA, [place], coronary artery disease status post cardiac stents, peripheral vascular disease, permanent pacemaker presents after syncopal episode. H&H stable, no leukocytosis. Chest x-ray negative. EKG shows atrial paced rhythm with LVH and submillimeter nonspecific downsloping ST segments. No obvious electrolyte abnormalities. Neurologically intact. Likely secondary to vasovagal versus orthostatic tension as patient had prodromal symptoms and feels as though she is dehydrated. Will admit for overnight o bservation. Case was discussed with Dr. Clay of cardiology who recommended outpatient follow-up with him in his office if patient's work-up is negative and she continues to remain asymptomatic. Plan Monitor electrolytes Telemetry monitoring Orthostatic vital signs Gentle IV fluids Outpatient follow-up with cardiology Hypertension Hold home antihypertensives. May restart if BP allows. Hyperlipidemia Continue home statin Coronary artery disease Continue home aspirin, statin Peripheral vascular disease Continue aspirin Plavix DVT prophylaxisSCDs Full codeMDM is patient's daughter Case discussed with attending physician, Dr. Guerrero.
[2020-08-07 16:58] VITALS: BMI 19.8
[2020-08-07 17:50] LABS: Troponin I 0.015 ng/mL (< 0.028)
[2020-08-07] MEDS ORDERED: hydrALAZINE 20 MG/ML VIAL SLOW IVP SCH (20:15)
[2020-08-07 21:29] LABS: Troponin I 0.015 ng/mL (< 0.028)
[2020-08-08] MEDS ORDERED: Labetalol HCl 100 MG/20 ML VIAL SLOW IVP SCH (01:00)
[2020-08-08 02:04] LABS: SARS-CoV-2 PCR by NAA Not Detected (NotDetected)
[2020-08-08 05:09] LABS: #Basophils 0.1 thou/uL (0.0-0.2); #Eosinphils 0.1 thou/uL (0.0-0.7); #Lymphocytes 1.8 thou/uL (1.20-3.40); #Monocytes 0.5 thou/uL (0.11-0.59); #Neutrophils 4.7 thou/uL (1.40-6.50); %Basophils 0.8 % (0.0-1.0); %Lymphocytes 25.3 % (21.0-51.0); %Monocytes 6.3 % (0.0-10.0); %Neutrophils 66.6 % (42.0-75.0); Hemoglobin 10.7 g/dL (12.0-16.0); Mean Corpuscular HGB CONC 32.3 g/dL (32.0-36.0); Mean Corpuscular Hemoglobin 26.2 pg (27.0-31.0); Mean Corpuscular Volume 81.2 fL (78.0-98.0); Mean Platelet Volume 10.3 fL (7.4-10.4); Platelet Count 143 thou/uL (130-400); RBC Distribution Width 14.5 % (11.5-14.5); Red Blood Cell (RBC) Count 4.07 mill/uL (4.20-5.40); White Blood Cell (WBC) Count 7.1 thou/uL (4.8-10.8)
[2020-08-08 05:34] LABS: Anion Gap 12 mmol/L (10-20); BUN (Urea Nitrogen) 17 mg/dL (9.8-20.1); Calc. Creatinine Clearance 34 mL/min (70-130); Calcium 8.9 mg/dL (7.8-10.44); Carbon Dioxide 28 mmol/L (23-31); Chloride 105 mmol/L (98-107); Glucose 90 mg/dL (83-110); Potassium 3.5 mmol/L (3.5-5.1); Sodium 141 mmol/L (136-145)
[2020-08-08 16:10] LABS: Bacteria/HPF None Seen HPF (None Seen); Bilirubin Negative (Negative); Blood, Urine Negative (Negative); Clarity Clear (Clear); Glucose, Urine (Dipstick) Normal (Negative); Ketone, Urine Negative (Negative); Leukocyte Negative Leu/uL (Negative); Nitrite Negative (Negative); Protein, Urine (Dipstick) Negative (Neg-Trace); RBC/HPF 0-3 HPF (0-3); Specific Gravity, Urine 1.016 (1.002-1.036); Squamous Epithelial 0-3 HPF (0-3); Urobilinogen Normal mg/dL (Less than 2)
--- NOTE | 2020-08-08 16:11 | PDOC.HOSPP ---
- Subjective Encounter Date: 08/08/20 Encounter Time: 09:00 Subjective: Patient up in bed no complaints. - Objective Vital Signs & Weight: Vital Signs (12 hours) Temp Pulse Resp BP BP BP BP 08/08/20 15:37 97.9 F 75 20 187/81 H 160/57 H 08/08/20 12:07 98.3 F 77 20 151/71 H 198/84 H 08/08/20 10:16 149/70 H 148/67 H 212/82 H 08/08/20 07:38 97.7 F 75 16 199/83 H 08/08/20 04:20 97.9 F 76 20 172/76 H Pulse Ox 08/08/20 15:37 94 L 08/08/20 12:07 95 08/08/20 10:16 08/08/20 07:38 96 08/08/20 04:20 95 Weight Weight 116 lb 9.6 oz I&O: 08/07/20 08/08/20 08/09/20 06:59 06:59 06:59 Intake Total 150 Balance 150 Result Diagrams: 08/08/20 04:31 08/08/20 04:31 Hospitalist ROS - Review of Systems Respiratory: denies: cough, dry, shortness of breath, hemoptysis, SOB with excertion, pleuritic pain, sputum, wheezing, other Cardiovascular: denies: chest pain, palpitations, orthopnea, paroxysmal noc. dyspnea, edema, light headedness, other Gastrointestinal: denies: nausea, vomiting, abdominal pain, diarrhea, constipation, melena, hematochezia, other - Medication Medications: Active Medications Generic Name Dose Route Start Last Admin Trade Name Freq PRN Reason Stop Dose Admin Metoprolol Succinate 25 mg 08/08/20 09:00 08/08/20 08:15 Metoprolol Succinate Xl 25 Mg Tab PO 25 mg DAILY JOANNA Administration - Exam Neck: negative: supple, symmetric, no JVD, no thyromegaly, no lymphadenopathy, no carotid bruit, JVD Heart: negative: RRR, no murmur, no gallops, no rubs, normal peripheral pulses, irregular, diminshed peripheral pulses, murmur present, II/IV, III/IV Respiratory: negative: CTAB, no wheezes, no rales, no ronchi, normal chest expansion, no tachypnea, normal percussion, rales, rhonchi, tachypneic, wheezes Gastrointestinal: negative: soft, non-tender, non-distended, normal bowel sounds, no palpable masses, no hepatomegaly, no splenomegaly, no bruit, no guarding, no rigidity, tender to palpation, distended, diminished bowl sounds, voluntary guarding Hosp A/P (1) Syncope and collapse Code(s): R55 - SYNCOPE AND COLLAPSE Status: Acute (2) S/P TAVR (transcatheter aortic valve replacement) Code(s): Z95.2 - PRESENCE OF PROSTHETIC HEART VALVE Status: Acute (3) Pacemaker Code(s): Z95.0 - PRESENCE OF CARDIAC PACEMAKER Status: Acute - Plan Patient states that after eating she felt diaphoretic and nauseous and then passed out while she was sitting. Her orthostatics were positive however her blood pressure has been very labile running mostly high than low. She denies any recent sick illnesses. 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 I would not repeat echocardiogram however I will get cardiology to see this patient. Her pacemaker maker was interrogated. Had a CTA couple years ago which did not show any acute abnormalities. She could have had a possible postprandial syncope
[2020-08-08] MEDS ORDERED: Lisinopril 20 MG TAB PO SCH (16:15)
--- NOTE | 2020-08-08 19:36 | CON ---
DATE OF CONSULTATION: HISTORY OF PRESENT ILLNESS: Laurence Huang is an 85-year-old white female, who is a patient of Dr. Clay. In November 2019, she underwent cardiac catheterization, had [id number] coronary artery disease, and severe aortic stenosis. She was then referred to [facility] in [place], and underwent transcatheter aortic valve replacement. States that after that she had significant improvement in her breathing and her energy level. She was last seen in the office on July 22, 2020, and was doing well at that time. Her last echocardiogram was on June 24, 2020. This revealed ejection fraction of 55% to 60%, [id number] left ventricular hypertrophy, diastolic dysfunction, moderate left atrial enlargement, transcatheter aortic valve replacement, mild mitral regurgitation, mild tricuspid regurgitation, and a small pericardial effusion. She felt somewhat nauseous and lightheaded this morning and apparently lost consciousness and fell to the floor. Her called 911 and she was brought to the hospital. She denies any chest discomfort or shortness of breath. PAST MEDICAL HISTORY: Hypertension, hyperlipidemia, peripheral vascular disease, coronary artery disease, stroke in April 2018, hypothyroidism. MEDICATIONS: 1. Metoprolol-XL 25 mg daily. 2. Plavix 75 mg daily. 3. Aspirin 81 daily. ALLERGIES: NONE. SOCIAL HISTORY: She smokes 6 to 10 cigarettes per day. She does not drink any alcohol. REVIEW OF SYSTEMS: A 10-point review of systems is otherwise unremarkable. PHYSICAL EXAMINATION: VITAL SIGNS: Blood pressure 187/81, pulse of 75. Atrial pacing on the monitor. HEENT: PERRL. NECK: Supple. CHEST: Clear. CARDIAC: S1 and S2 normal. There is a 2/6 systolic ejection murmur heard throughout the precordium. ABDOMEN: Normal bowel sounds without tenderness or organomegaly. EXTREMITIES: Reveal no clubbing, cyanosis, or edema. NEUROLOGIC: Grossly intact. LABORATORY DATA: EKG reveals atrial pacing with left ventricular hypertrophy with repolarization abnormality. Hemoglobin 10.7, hematocrit 33.1, white count 7100, platelets 143,000. Sodium 141, potassium 3.5, chloride 105, carbon dioxide 28, BUN 12, creatinine 0.96. TSH is mildly elevated at 5.1118. Troponin I is normal x3. IMPRESSION: 1. Syncope of uncertain etiology. From interrogation of her pacemaker as noted below, this does not appear to be due to a cardiac bradyarrhythmia or tachycardia. She certainly may have had a vasovagal episode. 2. Status post pacemaker placement in September 2017. Atrial threshold is 0.375 V, ventricular threshold 0.625 V. There was excellent sensing. She also has not had any significant arrhythmias this year. At times, she does have atrial tachycardia, but once again her last episode was June 23, 2020. 3. Hypertension. PLAN: The patient will continue to be monitored. From a cardiac standpoint, she does not appear to have any arrhythmias that would have led to an episode of syncope. Job ID: [id number] MTDD
[2020-08-09] MEDS ORDERED: Clopidogrel Bisulfate 75 MG TAB PO SCH (09:00)
[2020-08-09] MEDS ORDERED: Lisinopril 20 MG TAB PO SCH (09:00)
[2020-08-09] MEDS ORDERED: Aspirin Chewable 81 MG TAB PO SCH (09:00)
[2020-08-09 09:01] VITALS: BP 126/73; TEMP 97.7
--- NOTE | 2020-08-09 12:23 | ULT ---
Carotid arterial Doppler ultrasound: 08/09/2020 COMPARISON: None HISTORY: Syncope TECHNIQUE: Multiplanar grayscale sonographic imaging of the arterial structures of the neck obtained with Doppler interrogation including color flow and spectral analysis. FINDINGS: There is circumferential noncalcified plaque within the distal right CCA. Antegrade blood f low and normal arterial waveforms are noted within the carotid and the vertebral system bilaterally. Noncalcified distal left CCA atherosclerotic plaque noted. Partially calcified plaque noted within the proximal left ICA. Peak systolic velocity (centimeters per second) is as follows: Right CCA 65 Right ICA 97 Left CCA 84 Left ICA 85 ICA/CCA ratio is 1.5 on the right and 1.0 on the left. IMPRESSION: No hemodynamically significant stenosis on the basis of sonographic velocity criteria.
--- NOTE | 2020-08-09 17:20 | PDOC.DS.DS ---
Provider - Provider Date of Admission: 08/07/20 13:23 Date of Discharge: 08/09/20 Admitting Provider: Anup Guerrero MD Consultations: Cardiology Primary Care Physician: ANUP MOSES JR, MD Course - Hospital Course Hospital Course: Patient is 85-year-old female who initially presented to the hospital for syncopal episode. Patient's pacemaker was interrogated which did not show any acute abnormalities. She was seen by cardiology. Patient syncopal event most likely postprandial syncope versus vasovagal. She recently had an echocardiogr am in June which showed an EF of 55 to 60% at the design maker office. She also underwent TAVR about a year ago. Patient will follow up with the primary care doctor. She was noted to have some elevated blood pressure at this time a small dose of lisinopril was started. Resuscitation Status: 08/07/20 14:49 Resuscitation Status Routine Co-Sign Provider: Resuscitation Status: FULL: Full Resuscitation - Labs Lab Results: 08/08/20 04:31 08/08/20 04:31 Abnormal Lab Results - Last 48 hrs 08/07/20 16:54: TSH 3rd Generation 5.1118 H 08/08/20 04:31: RBC 4.07 L, Hgb 10.7 L, Hct 33.1 L, MCH 26.2 L 08/08/20 15:45: Urine WBC 4-6 A - Physical Exam Vitals: Vital Signs (12 hours) Temp Pulse Resp BP Pulse Ox 08/09/20 08:00 97.7 F 84 16 126/73 99 Weight Weight 117 lb 5 oz Physical Exam: The patient was seen and examined on the day of discharge. Problem - Problem (1) Syncope and collapse Code(s): R55 - SYNCOPE AND COLLAPSE Status: Acute (2) S/P TAVR (transcatheter aortic valve replacement) Code(s): Z95.2 - PRESENCE OF PROSTHETIC HEART VALVE Status: Acute (3) Pacemaker Code(s): Z95.0 - PRESENCE OF CARDIAC PACEMAKER Status: Acute Plan - Discharge Medications Prescriptions: Lisinopril 10 mg PO DAILY #30 tablet Home Medications: Medication Instructions Recorded Confirmed Type Aspirin Chewable [Aspirin Chewable 81 mg PO DAILY #0 tab 09/21/17 08/07/20 Rx Tablet] Clopidogrel Bisulfate [Plavix] 75 mg PO DAILY tab 09/21/17 08/07/20 Rx Metoprolol Succinate [Toprol XL] 25 mg PO DAILY 08/07/20 08/07/20 History Lisinopril 10 mg PO DAILY #30 tablet 08/09/20 Rx Allergies: No Known Allergies Allergy (Verified 10/09/19 03:35) - Discharge Instructions Discharge Instructions:: PLEASE FOLLOW UP WITH YOUR PRIMARY CARE ABOUT YOUR THYROID I HAVE NOT STARTED YOU ON [facility] PLEASE CHECK YOUR TSH IN 3-4 WEEKS - Follow up Plan Referrals: Anup Moses Jr, MD [Primary Care Provider] - (Call office to schedule a follow up appointment within 7 days. Please discuss starting new hypothyroid medication. ) Disposition: HOME Quality - Care Measures CORE MEASURES:: N/A
== END 2020-08-09 15:40 | disposition home or self-care (01) ==
LOC: ERS 10:55 → 2NO 13:23
PROVIDERS: ADMIT Internal Medicine; ATTEND Internal Medicine
DX: R55 Syncope and collapse (principal); I10 Essential (primary) hypertension; E78.5 Hyperlipidemia, unspecified; I25.10 Atherosclerotic heart disease of native coronary artery without angina pectoris; E03.9 Hypothyroidism, unspecified; I35.0 Nonrheumatic aortic (valve) stenosis; I25.2 Old myocardial infarction; I73.9 Peripheral vascular disease, unspecified; F17.210 Nicotine dependence, cigarettes, uncomplicated; Z79.02 Long term (current) use of antithrombotics/antiplatelets; Z79.82 Long term (current) use of aspirin; Z79.899 Other long term (current) drug therapy; Z86.73 Personal history of transient ischemic attack (TIA), and cerebral infarction without residual deficits; Z95.0 Presence of cardiac pacemaker; Z95.2 Presence of prosthetic heart valve; Z95.5 Presence of coronary angioplasty implant and graft; Z20.822 Contact with and (suspected) exposure to COVID-19
CPT/HCPCS: 71045; 80048; 81001; 83735; 83880; 84439; 84484 ×2; 85025; 93005; 93880; 99285; U0003; U0005; 36415; 36416; 80053; 84443; 87635; 96374; 96375; G0378; J0360

== ENCOUNTER 2020-11-03 10:12 | Inpatient (IN) | payer MEDICARE, OTHER ==
[2020-11-03 11:39] LABS: #Basophils 0.1 thou/uL (0.0-0.2); #Eosinphils 0.2 thou/uL (0.0-0.7); #Lymphocytes 2.1 thou/uL (1.20-3.40); #Monocytes 0.4 thou/uL (0.11-0.59); #Neutrophils 2.9 thou/uL (1.40-6.50); %Basophils 1.2 % (0.0-1.0); %Eosinophils 2.8 % (0.0-10.0); %Lymphocytes 37.5 % (21.0-51.0); %Monocytes 6.4 % (0.0-10.0); Hemoglobin 9.8 g/dL (12.0-16.0); Mean Corpuscular HGB CONC 32.7 g/dL (32.0-36.0); Mean Corpuscular Hemoglobin 27.1 pg (27.0-31.0); Mean Corpuscular Volume 82.8 fL (78.0-98.0); Mean Platelet Volume 11.2 fL (7.4-10.4); Platelet Count 143 thou/uL (130-400); RBC Distribution Width 14.1 % (11.5-14.5); Red Blood Cell (RBC) Count 3.61 mill/uL (4.20-5.40); White Blood Cell (WBC) Count 5.5 thou/uL (4.8-10.8)
[2020-11-03 11:48] LABS: Bilirubin Negative (Negative); Blood, Urine Negative (Negative); Clarity Clear (Clear); Glucose, Urine (Dipstick) Normal (Negative); Ketone, Urine Negative (Negative); Leukocyte Negative Leu/uL (Negative); Nitrite Negative (Negative); Protein, Urine (Dipstick) 10 mg/dL (Neg-Trace); Specific Gravity, Urine 1.017 (1.002-1.036); Urobilinogen Normal mg/dL (Less than 2); pH, Urine 6.5 (5.0-9.0)
[2020-11-03 12:05] LABS: CKMB 2.2 ng/mL (0-6.6)
[2020-11-03 12:15] LABS: ALT (SGPT) 7 U/L (8-55); AST (SGOT) 26 U/L (5-34); Albumin 3.5 g/dL (3.4-4.8); Alkaline Phosphatase 131 U/L (40-110); Anion Gap 17 mmol/L (10-20); BUN (Urea Nitrogen) 21 mg/dL (9.8-20.1); Bilirubin, Total 0.4 mg/dL (0.2-1.2); CK (CPK) 32 U/L (29-168); Calc. Creatinine Clearance 0 mL/min (70-130); Calcium 8.6 mg/dL (7.8-10.44); Carbon Dioxide 22 mmol/L (23-31); Chloride 106 mmol/L (98-107); Globulin 2.6 g/dL (2.4-3.5); Glucose 133 mg/dL (83-110); Lipase 19 U/L (8-78); Potassium 4.5 mmol/L (3.5-5.1); Protein, Total 6.1 g/dL (5.8-8.1); Sodium 140 mmol/L (136-145)
[2020-11-03 13:44] LABS: Troponin I 0.014 ng/mL (< 0.028)
[2020-11-03] MEDS ORDERED: Acetaminophen 650 MG Suppository PR PRN (13:45)
[2020-11-03] MEDS ORDERED: Acetaminophen 325 MG TAB PO PRN (13:45)
[2020-11-03 15:35] LABS: Iron 23 ug/dL (50-170); Iron Binding Capacity, Total 398 mcg/dL (265-497)
[2020-11-03 15:41] LABS: Troponin I 0.019 ng/mL (< 0.028)
[2020-11-03 16:58] VITALS: BMI 18.6
[2020-11-03 17:50] LABS: Troponin I 0.022 ng/mL (< 0.028)
[2020-11-03] MEDS: Sodium Chloride 0.9% 1,000 ML IV SCH ×3 (18:20→19:39)
[2020-11-03] MEDS: hydrALAZINE 20 MG/ML VIAL SLOW IVP PRN (19:39)
[2020-11-04] MEDS: hydrALAZINE 20 MG/ML VIAL SLOW IVP PRN ×2 (01:06→17:22)
[2020-11-04] MEDS: Sodium Chloride 0.9% 1,000 ML IV SCH ×2 (05:28→08:49)
[2020-11-04 06:12] LABS: #Basophils 0.1 thou/uL (0.0-0.2); #Eosinphils 0.1 thou/uL (0.0-0.7); #Lymphocytes 1.3 thou/uL (1.20-3.40); #Monocytes 0.4 thou/uL (0.11-0.59); #Neutrophils 7.2 thou/uL (1.40-6.50); %Basophils 0.7 % (0.0-1.0); %Eosinophils 0.6 % (0.0-10.0); %Lymphocytes 14.2 % (21.0-51.0); %Monocytes 4.9 % (0.0-10.0); %Neutrophils 79.6 % (42.0-75.0); Hemoglobin 9.5 g/dL (12.0-16.0); Mean Corpuscular HGB CONC 32.2 g/dL (32.0-36.0); Mean Corpuscular Hemoglobin 26.3 pg (27.0-31.0); Mean Corpuscular Volume 81.9 fL (78.0-98.0); Mean Platelet Volume 10.7 fL (7.4-10.4); Platelet Count 164 thou/uL (130-400); RBC Distribution Width 13.8 % (11.5-14.5); Red Blood Cell (RBC) Count 3.62 mill/uL (4.20-5.40)
[2020-11-04 06:35] LABS: Anion Gap 13 mmol/L (10-20); BUN (Urea Nitrogen) 16 mg/dL (9.8-20.1); Calc. Creatinine Clearance 38 mL/min (70-130); Carbon Dioxide 21 mmol/L (23-31); Chloride 110 mmol/L (98-107); Glucose 91 mg/dL (83-110); Potassium 3.9 mmol/L (3.5-5.1); Sodium 140 mmol/L (136-145)
[2020-11-04 07:02] LABS: SARS-CoV-2 PCR by NAA Not Detected (NotDetected)
[2020-11-04] MEDS: Aspirin Chewable 81 MG TAB PO SCH (08:45)
[2020-11-04] MEDS: Ferrous Sulfate 325 MG TAB PO SCH (08:45)
[2020-11-04] MEDS ORDERED: Clopidogrel Bisulfate 75 MG TAB PO SCH (09:00)
[2020-11-04] MEDS ORDERED: Iron, Sodium Ferric Gluconate 125 MG in Sodium Chloride 0.9% 100 ML IVPB SCH (16:00)
[2020-11-04] MEDS: Ondansetron PF 4 MG/2 ML Vial IVP PRN (18:09)
[2020-11-04] MEDS ORDERED: GoLYTELY 4,000 ml Bottle PO SCH (20:30)
[2020-11-05] MEDS: Sodium Chloride 0.9% 1,000 ML IV SCH ×2 (01:08→15:07)
[2020-11-05] MEDS: Ondansetron PF 4 MG/2 ML Vial IVP PRN (04:27)
[2020-11-05] MEDS: Ferrous Sulfate 325 MG TAB PO SCH (09:14)
[2020-11-05] MEDS: Aspirin Chewable 81 MG TAB PO SCH (09:15)
[2020-11-05] MEDS ORDERED: Midazolam HCl 2 mg/2 ml Vial ONE (11:46)
[2020-11-05] MEDS ORDERED: Ketamine 50 MG/ML (10ML VIAL) ONE (11:46)
[2020-11-05] MEDS ORDERED: Lidocaine 1% PF 5 ML VIAL ONE (12:08)
[2020-11-05] MEDS ORDERED: PROPOFOL 200 MG/20 ML VIAL ONE (12:08)
[2020-11-05] MEDS ORDERED: Ondansetron HCl/PF 4 MG/2 ML Vial IVP PRN (12:33)
[2020-11-05] MEDS ORDERED: Promethazine HCl 25 MG/ML VIAL SLOW IVP PRN (12:33)
[2020-11-05] MEDS ORDERED: Promethazine HCl 25 MG/ML VIAL IM PRN (12:33)
[2020-11-05] MEDS ORDERED: Polyethylene Glycol 3350 17 GM Packet PO SCH (13:30)
[2020-11-05] MEDS: Labetalol HCl 100 MG/20 ML VIAL SLOW IVP PRN (15:24)
[2020-11-05] MEDS: Pantoprazole 40 MG VIAL IVP SCH (21:03)
[2020-11-05] MEDS: Polyethylene Glycol 3350 17 GM Packet PO SCH (21:04)
[2020-11-06] MEDS ORDERED: Furosemide 40 MG/4 ML VIAL SLOW IVP SCH (03:15)
[2020-11-06 05:02] LABS: #Basophils 0.1 thou/uL (0.0-0.2); #Eosinphils 0.1 thou/uL (0.0-0.7); #Lymphocytes 0.8 thou/uL (1.20-3.40); #Neutrophils 10.3 thou/uL (1.40-6.50); %Basophils 0.5 % (0.0-1.0); %Eosinophils 0.4 % (0.0-10.0); %Lymphocytes 6.3 % (21.0-51.0); %Monocytes 7.8 % (0.0-10.0); Hemoglobin 10.5 g/dL (12.0-16.0); Mean Corpuscular HGB CONC 32.7 g/dL (32.0-36.0); Mean Corpuscular Hemoglobin 27.3 pg (27.0-31.0); Mean Corpuscular Volume 83.4 fL (78.0-98.0); Mean Platelet Volume 10.9 fL (7.4-10.4); Platelet Count 148 thou/uL (130-400); RBC Distribution Width 14.3 % (11.5-14.5); Red Blood Cell (RBC) Count 3.86 mill/uL (4.20-5.40); White Blood Cell (WBC) Count 12.2 thou/uL (4.8-10.8)
[2020-11-06] MEDS: Labetalol HCl 100 MG/20 ML VIAL SLOW IVP PRN (05:13)
[2020-11-06 05:24] LABS: ALT (SGPT) 7 U/L (8-55); AST (SGOT) 23 U/L (5-34); Albumin 3.9 g/dL (3.4-4.8); Alkaline Phosphatase 144 U/L (40-110); Anion Gap 13 mmol/L (10-20); BUN (Urea Nitrogen) 10 mg/dL (9.8-20.1); Bilirubin, Total 0.3 mg/dL (0.2-1.2); Calc. Creatinine Clearance 32 mL/min (70-130); Calcium 8.8 mg/dL (7.8-10.44); Carbon Dioxide 25 mmol/L (23-31); Chloride 108 mmol/L (98-107); Globulin 2.9 g/dL (2.4-3.5); Glucose 114 mg/dL (83-110); Potassium 3.9 mmol/L (3.5-5.1); Protein, Total 6.8 g/dL (5.8-8.1); Sodium 142 mmol/L (136-145)
[2020-11-06] MEDS: Aspirin Chewable 81 MG TAB PO SCH (10:00)
[2020-11-06] MEDS: Polyethylene Glycol 3350 17 GM Packet PO SCH ×2 (10:01→21:00)
[2020-11-06] MEDS: Pantoprazole 40 MG VIAL IVP SCH ×2 (10:02→21:00)
[2020-11-06] MEDS: Sodium Chloride 0.9% 1,000 ML IV SCH ×2 (10:11→21:07)
[2020-11-07] MEDS: Aspirin Chewable 81 MG TAB PO SCH (08:20)
[2020-11-07] MEDS: Sodium Chloride 0.9% 1,000 ML IV SCH (08:21)
[2020-11-07] MEDS: Polyethylene Glycol 3350 17 GM Packet PO SCH ×2 (08:21→20:19)
[2020-11-07] MEDS: Pantoprazole 40 MG VIAL IVP SCH ×2 (08:21→20:19)
[2020-11-07] MEDS ORDERED: hydrALAZINE 20 MG/ML VIAL SLOW IVP PRN (14:47)
[2020-11-07] MEDS: Labetalol HCl 100 MG/20 ML VIAL SLOW IVP PRN (20:16)
[2020-11-08] MEDS: Labetalol HCl 100 MG/20 ML VIAL SLOW IVP PRN (01:17)
[2020-11-08] MEDS ORDERED: Lisinopril 10 MG TAB PO SCH ×2 (03:15)
[2020-11-08] MEDS: Polyethylene Glycol 3350 17 GM Packet PO SCH ×2 (08:32→21:48)
[2020-11-08] MEDS: Aspirin Chewable 81 MG TAB PO SCH (08:32)
[2020-11-08] MEDS: Pantoprazole 40 MG VIAL IVP SCH ×2 (08:32→21:44)
[2020-11-08] MEDS: Ondansetron PF 4 MG/2 ML Vial IVP PRN (13:56)
[2020-11-08] MEDS ORDERED: cloNIDine 0.1 MG TAB PO PRN (16:02)
[2020-11-08] MEDS: Lisinopril 10 MG TAB PO SCH ×2 (21:48→22:13)
[2020-11-09 08:10] LABS: ALT (SGPT) 7 U/L (8-55); AST (SGOT) 15 U/L (5-34); Albumin 2.8 g/dL (3.4-4.8); Alkaline Phosphatase 102 U/L (40-110); Anion Gap 15 mmol/L (10-20); BUN (Urea Nitrogen) 12 mg/dL (9.8-20.1); Bilirubin, Total 0.4 mg/dL (0.2-1.2); Calc. Creatinine Clearance 35 mL/min (70-130); Calcium 8.2 mg/dL (7.8-10.44); Carbon Dioxide 22 mmol/L (23-31); Chloride 104 mmol/L (98-107); Globulin 2.7 g/dL (2.4-3.5); Glucose 87 mg/dL (83-110); Magnesium 2.1 mg/dL (1.6-2.6); Phosphorus 3.9 mg/dL (2.3-4.7); Protein, Total 5.5 g/dL (5.8-8.1); Sodium 137 mmol/L (136-145)
[2020-11-09] MEDS: Cyanocobalamin (Vitamin B-12) 1,000 MCG TAB PO SCH (08:39)
[2020-11-09] MEDS: Aspirin Chewable 81 MG TAB PO SCH (08:39)
[2020-11-09] MEDS: Polyethylene Glycol 3350 17 GM Packet PO SCH ×2 (08:40→23:38)
[2020-11-09 08:45] LABS: Band 1 % (5-11); Eosinophils 3 % (0-10); Hemoglobin 8.5 g/dL (12.0-16.0); Lymphocytes 19 % (21-51); MDiff Complete? YES; Mean Corpuscular HGB CONC 30.6 g/dL (32.0-36.0); Mean Corpuscular Hemoglobin 25.9 pg (27.0-31.0); Mean Corpuscular Volume 84.6 fL (78.0-98.0); Mean Platelet Volume 11.2 fL (7.4-10.4); Monocytes 9 % (0-10); Neutrophil 61 % (42-75); Platelet Count 126 thou/uL (130-400); RBC Distribution Width 14.7 % (11.5-14.5); Reactive Lymphocytes 7 % (0-10); Red Blood Cell (RBC) Count 3.29 mill/uL (4.20-5.40); White Blood Cell (WBC) Count 5.6 thou/uL (4.8-10.8)
[2020-11-09] MEDS: Lisinopril 10 MG TAB PO SCH (08:53)
[2020-11-09] MEDS: Sodium Chloride 0.9% 1,000 ML IV SCH ×2 (09:52→17:27)
[2020-11-09] MEDS ORDERED: Cyanocobalamin 1000 MCG/ML VIAL IM SCH (21:00)
[2020-11-09] MEDS ORDERED: Lisinopril 10 MG TAB PO SCH (21:00)
[2020-11-10 05:04] LABS: #Basophils 0.1 thou/uL (0.0-0.2); #Eosinphils 0.1 thou/uL (0.0-0.7); #Lymphocytes 1.3 thou/uL (1.20-3.40); #Monocytes 0.5 thou/uL (0.11-0.59); #Neutrophils 2.8 thou/uL (1.40-6.50); %Basophils 1.3 % (0.0-1.0); %Eosinophils 2.8 % (0.0-10.0); %Lymphocytes 27.3 % (21.0-51.0); %Neutrophils 58.5 % (42.0-75.0); Hemoglobin 9.2 g/dL (12.0-16.0); Mean Corpuscular HGB CONC 30.2 g/dL (32.0-36.0); Mean Corpuscular Hemoglobin 25.9 pg (27.0-31.0); Mean Corpuscular Volume 85.7 fL (78.0-98.0); Mean Platelet Volume 11.3 fL (7.4-10.4); Platelet Count 78 thou/uL (130-400); RBC Distribution Width 14.8 % (11.5-14.5); Red Blood Cell (RBC) Count 3.55 mill/uL (4.20-5.40); White Blood Cell (WBC) Count 4.7 thou/uL (4.8-10.8)
[2020-11-10 05:07] LABS: Reticulocyte Count 2.9 % (0.5-1.5)
[2020-11-10 05:24] LABS: Anion Gap 13 mmol/L (10-20); BUN (Urea Nitrogen) 9 mg/dL (9.8-20.1); Calc. Creatinine Clearance 39 mL/min (70-130); Calcium 8.6 mg/dL (7.8-10.44); Carbon Dioxide 25 mmol/L (23-31); Chloride 107 mmol/L (98-107); Glucose 84 mg/dL (83-110); Potassium 3.8 mmol/L (3.5-5.1); Sodium 141 mmol/L (136-145)
[2020-11-10] MEDS ORDERED: Lisinopril 10 MG TAB PO SCH (09:00)
[2020-11-10] MEDS: Aspirin Chewable 81 MG TAB PO SCH (09:09)
[2020-11-10] MEDS: Cyanocobalamin (Vitamin B-12) 1,000 MCG TAB PO SCH (09:09)
[2020-11-10] MEDS: Polyethylene Glycol 3350 17 GM Packet PO SCH ×2 (09:09→09:12)
[2020-11-10 16:07] VITALS: BP 165/72; TEMP 97.8
== END 2020-11-10 18:24 | disposition home or self-care (01) | DRG 312 ==
LOC: ERS 10:12 → ERHOLD 12:39 → 2SW 16:29 → OBSVTOIN 11-05 10:56 → SURG A 11-05 14:14 → 2NO 11-05 14:59
PROVIDERS: ADMIT Internal Medicine; ATTEND Internal Medicine
PROC: 0DJ08ZZ Inspection of Upper Intestinal Tract, Via Natural or Artificial Opening Endoscopic (ICD-10-PCS; principal; 2020-11-05)
DX: I95.1 Orthostatic hypotension (principal); I13.0 Hypertensive heart and chronic kidney disease with heart failure and stage 1 through stage 4 chronic kidney disease, or unspecified chronic kidney disease; I50.32 Chronic diastolic (congestive) heart failure; E78.5 Hyperlipidemia, unspecified; E03.9 Hypothyroidism, unspecified; I73.9 Peripheral vascular disease, unspecified; I25.10 Atherosclerotic heart disease of native coronary artery without angina pectoris; E53.8 Deficiency of other specified B group vitamins; F17.200 Nicotine dependence, unspecified, uncomplicated; D69.6 Thrombocytopenia, unspecified; I08.1 Rheumatic disorders of both mitral and tricuspid valves; I49.5 Sick sinus syndrome; D50.9 Iron deficiency anemia, unspecified; N18.2 Chronic kidney disease, stage 2 (mild); Z53.8 Procedure and treatment not carried out for other reasons; Z20.822 Contact with and (suspected) exposure to COVID-19; Z95.2 Presence of prosthetic heart valve; Z88.8 Allergy status to other drugs, medicaments and biological substances; Z79.82 Long term (current) use of aspirin; Z79.02 Long term (current) use of antithrombotics/antiplatelets; Z71.6 Tobacco abuse counseling; Z95.0 Presence of cardiac pacemaker
CPT/HCPCS: 36415; 51701; 71045; 80048; 80053; 81003; 82274; 82550; 82553; 82607; 82728; 82746; 83540; 83550; 83690; 83735; 83880; 84100; 84443; 84484; 85025; 85046; 87635; 93005; 93306; 94640; 96374; 96375; 96376; C9113; G0378; J0360; J1940; J2250; J2405; J2704; J2916; J3420; J3490; J7620; U0003; U0005